=== PATIENT | female | born 1975 | race Caucasian/White ===

== ENCOUNTER 2019-10-28 06:54 | Outpatient (REF) | payer BC, SELFPAY ==
[2019-10-28 13:31] LABS: Alanine Aminotransferase 30 U/L (0-33); Alkaline Phosphatase 84 IU/L (35-105); Anion Gap 18.1 (5-19); Aspartate Amino Transferase 37 U/L (0-32); Blood Urea Nitrogen 17 mg/dL (6-20); Calcium 9.6 mg/dL (8.5-10.5); Carbon Dioxide 25 mmol/L (22-29); Chloride 97 mmol/L (98-107); Chol HDL Ratio 4.31 mg/dL (0.0-4.40); Cholesterol 250 mg/dL (0-200); Globulin 3.5 g/dL (1.3-4.6); Glomerular Filtration Rate 108.6 mL/min (90-130); Glucose 99 mg/dL (65-115); HDL Cholesterol 58 mg/dL (60-100); LDL Cholesterol Calculated 173 mg/dL (50-129); LDL HDL Ratio 2.98 RATIO (0.00-3.22); Potassium 3.1 mmol/L (3.5-5.1); Sodium 137 mmol/L (136-145); Thyroid Stimulating Hormone 1.57 uIU/mL (0.27-4.20); Total Bilirubin 0.3 mg/dL (0.15-1.2); Total Protein 7.5 g/dL (6.6-8.7); Triglycerides 93 mg/dL (0-150)
[2019-10-28 13:37] LABS: Estmated Average Glucose 128; Hemoglobin A1C 6.1 % (4.0-6.0)
[2019-10-28 23:28] LABS: 25 Hydroxy Vitamin D 21 ng/mL (30-100)
[2019-10-29 03:03] LABS: Basophils # 0.1 10^3/uL (0.0-0.1); Basophils % 0.7 %; Eosinophils # 0.4 10^3/uL (0.0-0.8); Eosinophils % 5.3 %; Hematocrit 38.1 % (37.0-47.0); Hemoglobin 11.2 g/dL (11.5-15.3); Lymphocytes # 2.3 10^3/uL (0.8-4.8); Lymphocytes % 31.3 %; Mean Corpuscular HGB Conc 29.4 g/dL (30.0-36.0); Mean Corpuscular Hemoglobin 22.3 pg (28.0-34.0); Mean Corpuscular Volume 75.9 fL (81-99); Mean Platelet Volume 12.9 fL (7.4-10.4); Monocytes # 0.9 10^3/uL (0.2-0.9); Monocytes % 11.7 %; Neutrophils # 3.7 10^3/uL (1.8-7.7); Neutrophils % 50.7 %; Nucleated Red Blood Cells % 0 %; Platelet Count 356 10^3/cmm (130-400); Red Blood Count 5.02 10^6/uL (4.1-5.3); Red Cell Distribution Width 16.9 % (12.1-15.1); White Blood Count 7.3 10^3/uL (4.0-10.0)
== END 2019-10-28 06:55 | disposition home or self-care (01) ==
LOC: LAB 06:54
PROVIDERS: Family Provider Family Medicine; Visit Provider Dermatology
DX: Z01.89 Encounter for other specified special examinations (principal)
CPT/HCPCS: 80053; 80061; 82306; 83036; 84443; 85025

== ENCOUNTER 2020-07-16 16:03 | Outpatient (CLI) | payer BC, SELFPAY ==
--- NOTE | 2020-07-16 16:42 | CTR_ITS ---
PROCEDURE INFORMATION: Exam: CT Angiography Chest With Contrast Exam date and time: 07/16/2020 4:42 PM Age: 44 years old Clinical indication: Cough and shortness of breath; Prior surgery; Surgery type: Breast aug; Additional info: Cough, dyspnea. Please call Dr. La with results [phone] TECHNIQUE: Imaging protocol: Computed tomographic angiography of the chest with intravenous contrast. 3D rendering (Not supervised by radiologist): MIP and/or 3D reconstructed images were created by the technologist. Radiation optimization: All CT scans at this facility use at least one of these dose optimization techniques: automated exposure control; mA and/or kV adjustment per patient size (includes targeted exams where dose is matched to clinical indication); or iterative reconstruction. Contrast material: OMNI 350; Contrast volume: 70 ml; Contrast route: INTRAVENOUS (IV); COMPARISON: No relevant prior studies available. RADIATION DOSE METRICS: Total DLP (mGy-cm): 595.56 FINDINGS: Pulmonary arteries: No visible evidence of pulmonary embolism/pulmonary arterial thrombus. Aorta: The thoracic aorta is nonaneurysmal. No visible intimal flap or dissection. Minimal arterial sclerotic disease. Lungs: Evidence of antecedent granulomatous disease. Calcified granuloma posterior basal segment left lower lobe. Mild air trapping of COPD/chronic bronchitis. No visible consolidated alveolar airspace disease. Pleural space: Unremarkable. No pneumothorax. No pleural effusion. Heart: Mild coronary artery disease. No visible pericardial effusion. Lymph nodes: No visible active mediastinal or hilar lymphadenopathy. Gallbladder and bile ducts: Status post cholecystectomy. Spleen: Splenule. Spleen otherwise appears unremarkable. Bones/joints: Mild degenerative disease of the spine. No visible acute osseous abnormality. Soft tissues: Bilateral breast implants. CT/CT angio chest PE protcl [id number] IMPRESSION: 1. No visible evidence of pulmonary embolism/pulmonary arterial thrombus. 2. Mild air trapping of COPD/chronic bronchitis. 3. Mild coronary artery disease. Radiation Dose CTDIVOL = (mGy): DLP = 595.56 (mGy-cm)
[2020-07-16] MEDS: iohexol 350 mg/mL 100 mL Btl IV (16:57)
== END 2020-07-16 16:04 | disposition home or self-care (01) ==
LOC: RAD 16:09
PROVIDERS: PCP Family Medicine; Visit Provider Family Medicine
DX: R05 Cough (principal); I25.10 Atherosclerotic heart disease of native coronary artery without angina pectoris
CPT/HCPCS: 71275

== ENCOUNTER 2020-07-24 09:51 | Outpatient (CLI) | payer BC, SELFPAY ==
[2020-07-24 10:08] LABS: Basophils % 0.4 %; Eosinophils # 0.2 10^3/uL (0.0-0.8); Eosinophils % 3.4 %; Hematocrit 42.4 % (37.0-47.0); Hemoglobin 13.8 g/dL (11.5-15.3); Lymphocytes # 2.1 10^3/uL (0.8-4.8); Lymphocytes % 30.6 %; Mean Corpuscular HGB Conc 32.5 g/dL (30.0-36.0); Mean Corpuscular Hemoglobin 25.6 pg (28.0-34.0); Mean Corpuscular Volume 78.7 fL (81-99); Mean Platelet Volume 11.5 fL (7.4-10.4); Monocytes # 0.7 10^3/uL (0.2-0.9); Monocytes % 10.8 %; Neutrophils # 3.74 10^3/uL (1.8-7.7); Neutrophils % 54.7 %; Nucleated Red Blood Cells % 0 %; Platelet Count 306 10^3/cmm (130-400); Red Blood Count 5.39 10^6/uL (4.1-5.3); Red Cell Distribution Width 14.3 % (12.1-15.1); White Blood Count 6.8 10^3/uL (4.0-10.0)
== END 2020-07-24 09:52 | disposition home or self-care (01) ==
LOC: LAB 09:53
PROVIDERS: PCP Family Medicine; Visit Provider Internal Medicine Pulmonary Disease
DX: J45.909 Unspecified asthma, uncomplicated (principal); R06.02 Shortness of breath
CPT/HCPCS: 36415; 85025; 87635

== ENCOUNTER 2020-07-27 07:57 | Day surgery (SDC) | payer BC, SELFPAY ==
[2020-07-26 14:41] VITALS: BMI 34.4
[2020-07-27] VITALS (9 sets, daily range): BP systolic 76–143; BP diastolic 61–95; PULSE 70–99; RESP 16–22; TEMP 36.1–36.8; O2SAT 94–97
--- NOTE | 2020-07-27 | SCC_ITS ---
Procedure:Bronchoscopy with BAL and Transbronchial biopsy 18.6 seconds of fluoroscopic guidance, for a cumulative dose of 4.23 mGy, was provided to Dr. Watkins by the radiology department. C-arm images of the chest were saved for the patient's permanent record. ADELED
--- NOTE | 2020-07-27 08:00 | SC_ITS ---
WS: [id number] C-arm fluoroscopy of the left chest for bronchoscopy, 07/27/2020. Clinical Data: bronchscopy with Transbroncial biopsies Comparison: Portable chest, 07/27/2020. Findings: The bronchoscope is in the left mid lung. SC/C-arm FL for Bronchoscopy Impression: Bronchoscopy of left lung.
[2020-07-27] MEDS: sodium chloride 0.9% 1,000 ML 30 ML IV (08:29)
--- NOTE | 2020-07-27 08:32 | P.ANESASSM_ITS ---
Pre-Anesthetic Assessment Pre-Anesthetic Assessment: Height/Weight: Height 1.7 m Weight 99.79 kg Temp Pulse Resp BP Pulse Ox 98.2 F 80 18 121/90 96 07/27/20 08:09 07/27/20 08:09 07/27/20 08:09 07/27/20 08:09 07/27/20 08:09 Preop Diagnosis: Interstitial lung disease Proposed Procedure: Operation Date: 07/27/20 09:25 Proposed Procedures p Bronchoscopy 57188 J45.909 R06.02 ALVEOLAR LAVAGE/TRANSBRONCHIAL BIOPSY(Not Applicable) - Kyle Watkins MD Familial anesthetic complications: PONV Was Beta Angela taken within 24 hours: N/A Last intake: Intake Last Liquid Date 07/26/20 Last Liquid Time 22:00 Last Solid Date 07/26/20 Last Solid Time 20:00 Social: Social History: No alcohol and No tobacco Exam: Pre-Anes Outpt Exam: alert, oriented x 3, clear to auscultation bilaterally and regular rate & rhythm Airway: Cervical ROM: WNL MP: 2 Dentition: Full Pulmonary: Pulmonary: Asthma Comments: post viral syndrome Anesthetic Plan: ASA status: 2 Anesthesia: General Other: TIVA for nausea Risk of > 500 ml blood loss (7ml/kg in children): No Meds/Allergies Current Medications: Current Medications Generic Name Dose Route Start Last Admin Trade Name Freq PRN Reason Stop Dose Admin Sodium Chloride 1,000 mls @ 30 ml s/hr 07/27/20 08:00 07/27/20 08:29 Sodium Chloride 0.9% IV 07/28/20 07:59 30 mls/hr .Q24H ALBERTO Administration PFSH Anesthesia PFSH: Social History Smoking and tobacco status: never smoked Second hand smoke exposure: No Smoking risk assessment/counseling performed?: No Alcohol intake: never Lives independently: Yes Household members: spouse Housing: House Marital status: Current occupational status: employed Current occupation: [employer] History of recent travel: No Current gender identity: Female Data Anesthesia Cardiac Studies: No Data to Display
[2020-07-27] MEDS: scopolamine 1.5 Patch 1 PATCH TRANSDERMA (08:41)
--- NOTE | 2020-07-27 10:00 | XR_ITS ---
WS: [id number] XR chest 1V portable [id number] REASON FOR EXAM: post bronch scopy with Transbroncial biopsies FINDINGS: Post bronchoscopy, evaluate for pneumothorax. Case discussed over the phone with end touching machine operator. Biopsy performed on the left side. There is no left pneumothorax. There are minimal infiltrative changes seen centrally and in the left lower lobe. (Min imal infiltrative change often seen post bronchoscopy.) Right lung is clear. The heart and mediastinum are within normal limits. XR/XR chest 1V portable [id number] IMPRESSION: No significant abnormality post bronchoscopy with left lung transbronchial biop sy.
--- NOTE | 2020-07-27 10:21 | P.HP_ITS ---
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 However patient Saw patient in clinic on 07/23/2020 for shortness of breath for last 4 to 6 weeks associated with pleuritic chest pain, nonproductive cough and chest tightness with orthopnea. 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 Denied history of smoking tobacco or marijuana, exposure to pets, known allergens to environment, secondhand smoke exposure, exposure to birds/regions, childhood asthma. 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 Takes hydrochlorothiazide and propranolol and vitamin supplements Travel to [place] in the summer and stayed there for 4 days in a high-end hotel which she has strict Covid precautions. More than 10 years ago she had a pericardial effusion which resolved with treatment. Reported having saline breast implants in 2008 and were filled with silicone 3 years ago in 2017. Reported no issues/leak with her implants. Family history grandfather at a young age due to heart problems, mother and father and are in their late 70s. Family history of hyperlipidemia. Review of Systems Narrative: Reports: 10 or more systems reviewed and unremarkable except as noted in History and below Const: Reports: fatigue; Denies: fever(s), chills, body aches or daytime sleepiness Eyes: Denies: change in vision ENMT: Denies: throat pain, ear or mastoid pain, nasal discharge or nasal congestion Card: Reports: chest pain, dyspnea on exertion and orthopnea; Denies: palpitations, irregular heart rhythm, swelling of feet/ankles, lightheadedness, syncope, pre-syncope or leg pain with exertion Resp: Reports: dyspnea, non-productive cough, wheezing and pain on inspiration; Denies: productive cough, stridor, change in phlegm color, hemoptysis or chest congestion GI: Denies: abdominal pain, nausea or vomiting : Denies: flank pain or difficulty voiding Musc: Reports: back pain (behind lungs, sore to touch); Denies: joint pain Skin/Breast: Denies: rash, pruritus or erythema Neuro: Denies: headache(s), difficulty walking or dizziness Psych: Denies: anxiety, depression, suicidal ideation or homicidal ideation Endo: Reports: tired all the time Jaspal/Lymph: Denies: easy bruising or easy bleeding All/Imm: Denies: seasonal rhinorrhea Medications/Allergies Home Medications Medication Instructions Recorded Confirmed Last Taken Type albuterol sulfate 90 mcg/actuation 2 puff INHALATION Q6H PRN 07/20/20 07/23/20 Unknown History aerosol inhaler hydrochlorothiazide 25 mg tablet 50 mg PO DAILY tab 07/20/20 07/23/20 Unknown History propranolol 10 mg tablet 10 mg PO BID 07/20/20 07/23/20 Unknown History fluticasone propionate 45 2 puff INHALATION BID #12 gm 07/23/20 07/23/20 Unknown Rx mcg-salmeterol 21 mcg/actuation HFA inhaler Allergies Allergy/AdvReac Type Severity Reaction Status Date / Time Penicillins Allergy Severe Unknown Verified 07/23/20 13:36 PFSH PFSH: Social History Smoking and tobacco status: never smoked Second hand smoke exposure: No Smoking risk assessment/counseling performed?: No Alcohol intake: never Lives independently: Yes Household members: spouse Housing: House Marital status: Current occupational status: employed Current occupation: [employer] History of recent travel: No Current gender identity: Female Dietary Habits: Caffeine: Yes Vital Signs Vitals Signs: Last Vital Signs Temp 98.2 F 07/27/20 08:09 Pulse 80 07/27/20 08:09 Resp 18 07/27/20 08:09 BP 121/90 07/27/20 08:09 Pulse Ox 96 07/27/20 08:09 Weight: Weight last 48 hrs Weight 220 lb Physical Exam Narrative: EXAM NARRATIVE: General: alert, NAD HEENT: conj clear, EOMI, PERRL, mmm, Neck: supple, no meningismus Heme: no cervical LAP Pulmonary: CTAB, no wheezing, rhonchi, crackles Cardiovascular: rrr, nl s1s2, no mrg Abdomen: soft, nt, nd, no r/g, bs+ Extremities: pulses +, no edema, no c/c : no CVA tenderness Skin: intact, no rash MSK: no back or neck pain Neurologic: grossly intact A&P Assessment and plan (1) Asthma: Status: Acute Qualifiers: Asthma severity: unspecified severity Asthma persistence: unspecified Asthma complication type: uncomplicated Qualified Code(s): J45.909 - Unspecified asthma, uncomplicated (2) Interstitial lung disease: Status: Acute (3) Exertional shortness of breath: Status: Acute #Shortness of breath/exertional chest pain with chest tightness- asthma/interstitial lung disease - 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 Cannot rule out if patient has Covid -Symptoms improved gradually all the family members but still persisting fatigue -CT chest did not show any pulmonary embolism but showed mild air trapping in the middle and lower lobes -Blood work from PCP office showed 5.5% absolute eosinophil count greater than 250 -Denied any exposure to smoke, smoking tobacco or marijuana, known allergens to environmental, animals, molds, exposure to birds, -Medications hydrochlorothiazide -some case reports reported peripheral eosinophilia -Recent travel to [place] for 4 days but since told her she is stating high-end hotel with good Covid precautions -cannot rule out parasitic infection -Differentials include allergic asthma/acute eosinophilic pneumonia/HP but patient refused any response to steroids given by PCP -Ordered CBC, IgE, allergy panel, requested PFTs and methacholine challenge test -Ordered stress echo and referral to cardiology in view of premature ? Coronary artery disease and family history of hyperlipidemia -Already on albuterol as needed and says it is not helping, started on Advair 45-21 2 puffs twice daily on 07/23/2020 but patient says that Advair made his shortness of breath even worse. -Scheduled for bronchoscopy to obtain BAL for cell differential and transbronchial biopsy to rule out a AEP/HP/? Silicon ILD due to breast implants silent ruptures Medical condition, labs, investigations, medications, counseling regarding medication compliance, side effects, importance of follow-up appointments, and plan of care-everything explained in detail to the patient. Patient verbalized understanding and agreed with the plan of care. 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
[2020-07-27] MEDS: EPINEPHrine 1 mg/mL INJ XX (11:10)
[2020-07-27] MEDS: lidocaine 1% INJ 20 mL XX (11:11)
--- NOTE | 2020-07-27 12:09 | PM.OP ---
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 The risk of having active MTB infection is very low in my clinical judgement. ASA: 2 Consent: Consents were obtained from patient/MPOA and placed in the chart Procedure Details: Time out was performed by the procedure team and nursing staff. Vent support maintained on Fio2 100. The bronchoscope was introduced through the LMA. True vocal cords visualized, mobile and look normal. 1% lidocaine 2 mL instilled and then trachea visualized with normal mucosa. Main aicha looked sharp. 1% lidocaine 2 mL instilled in both mainstem bronchi. A bronchoscopic airway exam was performed to evaluate the visible tracheobronchial tree to the segmental level up to 3RD generation. The right bronchial tree was assessed to include the right mainstem bronchus, RBI, and RUL/RML/RLL bronchi to the segmental level. Mucosa looked normal throughout with no endobronchial lesions or abnormalities. Then the left bronchial tree was assessed to include the left mainstem bronchus, NIKOLAY, Lingula, and LLL bronchi to the segmental level. Mucosa looked normal throughout with no endobronchial lesions or abnormalities. . BAL and 4 transbronchial biopsies were taken from the left lower lobe. Patient has significant amount of bleeding, about 20 mL from left lower lobe, hemostasis achieved with epinephrine and cold saline. Confirmed hemostasis with bronchoscope in both lungs. Limited clot-like materials noticed from lower lobe segments and biopsies were taken from to sent to histopathology. After making sure there is no active bleeding the bronchoscope was then removed and the procedure terminated. Estimated Blood Loss: 20 mL Specimens: BAL from right upper lobe sent for microbiology culture, mycobacterial stain and culture, fungal cultures for Aspergillus and galactomannan, cell count and differential, flow cytometry, transbronchial biopsies sent to pathology. Complications: Patient had about 20 mL bleeding from left lower lobe which was controlled with epinephrine/cold saline installation patient tolerated the procedure well. Chest x-ray pending to rule out post transbronchial biopsy pneumothorax. Disposition: Home Kyle Watkins MD Pulmonary critical Care Medicine [facility] Pre-op Diagnosis: Interstitial lung disease Associated Problem List Diagnoses (1) Exertional shortness of breath: (2) Interstitial lung disease: (3) Asthma: Qualifiers: Asthma severity: unspecified severity Asthma persistence: unspecified Asthma complication type: uncomplicated Qualified Code(s): J45.909 - Unspecified asthma, uncomplicated
[2020-07-27 13:19] LABS: Apprearance, Bronch Wash Clear (CLEAR); Color, Bronc Wash Colorless
[2020-07-27 13:22] LABS: PATH Referral Yes
--- NOTE | 2020-07-27 13:40 | ANE.PACU2 ---
Inpatient post-anesthesia follow up: Airway intact: Yes Vital signs: Temperature 98.1 F Pulse Rate 70 Respiratory Rate 18 Blood Pressure 96/67 Pulse Oximetry 94 Oxygen Delivery Me thod Room Air Oxygen Flow Rate 8 Fraction of Inspir ed Oxygen Hydration adequate: Yes Nausea and vomiting: No Pain level: 2 Mental status: Baseline
[2020-07-27 17:15] LABS: Total Cells Counted Bronch 200
[2020-08-04 14:03] LABS: Aspergillus AG,EIA DETECTED; Aspergillus AG,EIA, Index 1.02
[2020-09-20 12:15] LABS: Miscellaneous Test See Scanned Lab Rpt
== END 2020-07-27 13:41 | disposition home or self-care (01) ==
PROVIDERS: PCP Family Medicine; Visit Provider Internal Medicine Pulmonary Disease
PROC: 0BJ08ZZ Inspection of Tracheobronchial Tree, Via Natural or Artificial Opening Endoscopic (ICD-10-PCS; CPT 31622; principal; 2020-07-27 09:25)
DX: J84.9 Interstitial pulmonary disease, unspecified (principal); J45.909 Unspecified asthma, uncomplicated
CPT/HCPCS: 12345; 31624; 31625; 71045; 76000; 80500; 87015; 87070; 87102; 87116; 87205; 87206; 87305; 87801; 88112; 88305; 88307; 89050; 94640; J0171; J1100; J2405; J2704; J3010; J7030; J7611

== ENCOUNTER 2020-07-30 14:26 | Outpatient (CLI) | payer BC, SELFPAY ==
--- NOTE | 2020-07-30 09:36 | PFTS_ITS ---
Date of Study:07/30/20 Date of Dictation: 08/08/2020 MECHANICS: Forced vital capacity (FVC) is reduced 67% Forced expiratory volume in one second (FEV1) mildly reduced 77% FEV1/FVC is normal 92 No significant response to bronchodilators FLOW VOLUME LOOP: Normal . LUNG VOLUMES: Total lung capacity (TLC) is low normal. Residual volume (RV) is normal. DIFFUSING CAPACITY FOR CARBON MONOXIDE: Normal . INTERPRETATION: The PFTs consistent with low normal restriction with normal gas transfer suggestive of extrathoracic restrictive lung disease. Please correlate clinically. MTDD
--- NOTE | 2020-07-30 09:39 | MECH_ITS ---
Date of Study:07/30/20 Date of Dictation: 08/08/2020 MECHANICS: Pre diluent -FEV1 2.45 L Diluent FEV1 2.12 L [id number] diluent FEV1 1.94 L Post diluent FEV1 2.38 L . INTERPRETATION: Drop in FEV1 20% at PC 20 - positive methacholine challenge test and suggest severe airway hyperresponsiveness. Please correlate clinically. MTDD
--- NOTE | 2020-07-30 15:56 | PFTS_ITS ---
Date of Study:07/30/20 Date of Dictation: MECHANICS: Forced vital capacity (FVC) is . Forced expiratory volume in one second (FEV1) is . FEV1/FVC is . FLOW VOLUME LOOP: . LUNG VOLUMES: Total lung capacity (TLC) is . Residual volume (RV) is . DIFFUSING CAPACITY FOR CARBON MONOXIDE: . INTERPRETATION: The pulmonary function tests are . mechanics and lung volumes. Gas exchange (DLCO) is . MTDD
== END 2020-07-30 14:27 | disposition home or self-care (01) ==
LOC: RT 14:27
PROVIDERS: PCP Family Medicine; Visit Provider Internal Medicine Pulmonary Disease
DX: J45.909 Unspecified asthma, uncomplicated (principal)
CPT/HCPCS: 94060; 94070; 94726; 94729; J7611; J7626

== ENCOUNTER 2020-07-30 16:16 | Emergency (ER) | payer BC, SELFPAY ==
[2020-07-30] VITALS (13 sets, daily range): BP systolic 118–156; BP diastolic 79–95; PULSE 77–113; RESP 16–22; TEMP 36.4; O2SAT 93–98; BMI 33.6
[2020-07-30] MEDS: ipratropium-albuterol 3 mL Neb 6 ML INHALATION (16:48)
--- NOTE | 2020-07-30 16:54 | XR_ITS ---
WS: [id number] XR chest 1V portable [id number] REASON FOR EXAM: dyspnea/cough FINDINGS: Infiltrative change previously described in the left lower lobe, post bronchoscopy, has partially res olved. However there is a moderate amount of persistent abnormality. Right lung remains clear. Discussion: CT scan of the chest from 07/16/2020 demonstrated groundglass opacity in the left lower lobe and to a lesser extent in the right lower lobe. There are also some areas of hyper lucency in the left lower lung. Previous CT scan of 10/13/2005 also demonstrated the groundglass densities in both lower lobes. These lower lobe findings are difficult to identify on plain x-ray. They are nonspecific and can be s een with overriding of small airway disease and interstitial lung disease. Often associated with smok ing. XR/XR chest 1V portable [id number] IMPRESSION: Persistent left lower lobe infiltrative changes with partial resolution as darien yen
--- NOTE | 2020-07-30 16:57 | ED_ITS ---
Documented by User: Raleigh Cortez DO 07/31/20 17:55 HPI - SOB/Dyspnea General: Chief Complaint: Shortness of Breath/Dyspnea Stated Complaint: Trouble Breathing/Constant Chest Pain Time Seen by Provider: 07/30/20 16:48 History of Present Illness: HPI Narrative: 44 yo female presents to the emergency room from the PFT lab. She recently has been being worked up for difficulty breathing and wheezing. She had a bronchoscopy last week when she had this done she had quite a bit of bleeding postoperatively and has been coughing up moderate amounts of blood since but it has been decreasing in volume. Today she was in the PFT lab and had a methacholine challenge test and had a severe reaction she had several nebulizers and a Pulmicort did not seem to be getting better and she was referred here by Dr. Anthony Donovan. Dr. Anthony Donovan was in the emergency room and discussed with me. When I went in to see the patient she is awake and alert she is using a nebulizer treatment that we had ordered. She reports mild improvement since this episode began. She denies any recent fever sweats or chills but endorses report Dr. Anthony Donovan gave of having frequent shortness of breath and wheezing. MD elicited complaint: shortness of breath, cough and asthma attack Pertinent past history: asthma Onset (ago): minute(s) Context: recent illness and other (Methacholine challenge test) Timing: constant Severity: severe Exacerbating factors: coughing Relieving factors: bronchodilators Known history of: asthma Associated symptoms: Deny abdominal pain, chest congestion, chest pain, cough, diaphoresis, dizziness, extremity pain, fever(s), hemoptysis, lightheadedness, myalgias, nausea, orthopnea, palpitations, paresthesias, polydipsia, polyuria, rash, sense of impending doom, syncope or vomiting Treatment prior to arrival: oxygen and bronchodilator Review of Systems Const: Denies: fever(s) or diaphoresis ENMT: Denies: throat pain, ear or mastoid pain, nasal discharge or nasal congestion Card: Denies: chest pain, palpitations, lightheadedness, syncope or orthopnea Resp: Denies: hemoptysis or chest congestion GI: Denies: abdominal pain, nausea or vomiting : Denies: flank pain, difficulty voiding, dysuria, urinary frequency or urinary urgency Musc: Denies: extremity pain Skin/Breast: Denies: rash or pruritus Neuro: Denies: dizziness Endo: Denies: polyuria or polydipsia PFSH ED PFSH: Social History Smoking and tobacco status: never smoked Second hand smoke exposure: No Smoking risk assessment/counseling performed?: No Alcohol intake: never Lives independently: Yes Household members: spouse Housing: House Marital status: Current occupational status: employed Current occupation: [employer] Insurance History of recent travel: No Current gender identity: Female Physical Exam Const: COMMON NORMALS: no acute distress GENERAL APPEARANCE: cooperative and comfortable ORIENTATION/CONSCIOUSNESS: Yes awake, Yes oriented to person, Yes oriented to place and Yes oriented to time HENMT: COMMON NORMALS: normocephalic, atraumatic and hearing grossly normal bilaterally HEAD & SCALP: normocephalic and atraumatic Neck/C-Spine: COMMON NORMALS: no JVD Lymph: LYMPHATIC: no lymphadenopathy noted and no lymphedema noted Resp: AUSCULTATION: rhonchi and wheezes Cardio: COMMON NORMALS: no JVD, regular rate, regular rhythm and No murmurs present (Cardio) RATE: regular rate RHYTHM: regular rhythm GI: COMMON NORMALS: Soft to palpation and No hepatosplenomegaly present AUSCULTATION: Yes normoactive bowel sounds PALPATION: Yes Soft to palpation, No Tenderness to palpation present (GI), No Guarding due to palpation present (GI) and Yes No hepatosplenomegaly present Extremity: COMMON NORMALS: normal to inspection, capillary refill normal, no clubbing, cyanosis or edema, no calf tenderness and no pedal edema Neuro: SENSORIUM/ORIENTATION: Yes oriented to person, Yes oriented to place and Yes oriented to time Skin: COMMON NORMALS: no rashes or lesions noted GENERAL SKIN EXAM: no rashes or lesions noted Course Vital Signs: Vital signs: Vital Signs Temperature 97.5 F L 07/30/20 16:29 Pulse Rate 78 07/31/20 00:17 Respiratory Rate 16 07/31/20 00:17 Blood Pressure 158/75 07/31/20 00:17 Pulse Oximetry 93 07/31/20 00:17 MDM - SOB/Dyspnea MDM Narrative: Medical decision making narrative: Care turned over to Dr. Shetty at change of shift Lab Data: Labs: Lab Results 07/30/20 07/30/20 07/30/20 Range/Units 20:41 20:41 20:41 WBC 11.5 H (4.0-10.0) 10^3/ uL RBC 5.88 H (4.1-5.3) 10^6/u L Hgb 14.9 (11.5-15.3) g/dL Hct 46.0 (37.0-47.0) % MCV 78.2 L (81-99) fL MCH 25.3 L (28.0-34.0) pg MCHC 32.4 (30.0-36.0) g/dL RDW 14.3 (12.1-15.1) % Plt Count 338 (130-400) 10^3/c mm MPV 11.3 H (7.4-10.4) fL Neut % (Auto) 86.2 % Lymph % (Auto) 11.0 % Vilas % (Auto) 1.8 % Eos % (Auto) 0.3 % Baso % (Auto) 0.3 % Neut # (Auto) 9.86 H (1.8-7.7) 10^3/u L Lymph # (Auto) 1.3 (0.8-4.8) 10^3/u L Vil[place] # (Auto) 0.2 (0.2-0.9) 10^3/u L Eos # (Auto) 0.0 (0.0-0.8) 10^3/u L Baso # (Auto) 0.0 (0.0-0.1) 10^3/u L Nucleated RBC % (a uto) 0 % Nucleated RBCs # 0.0 /100WBC PT 12.70 (12.1-14.9) SECO NDS INR 0.93 (0.8-1.2) APTT 26.9 (23.9-36.7) SECO NDS D-Dimer 0.29 (0-0.59) ug/mIFE U Sodium 135 L (136-145) mmol/L Potassium 3.6 (3.5-5.1) mmol/L Chloride 97 L (98-107) mmol/L Carbon Dioxide 26 (22-29) mmol/L Anion Gap 15.6 (5-19) BUN 13 (6-20) mg/dL Creatinine 0.5 (0.5-0.9) mg/dL GFR Calculation 133.4 H (90-130) mL/min Glucose 132 H (65-115) mg/dL Calculated Osmolal ity 282 L (285-295) mOsm/k g Calcium 10.3 (8.5-10.5) mg/dL Magnesium 1.8 (1.7-2.3) mg/dL Total Bilirubin 0.3 (0.15-1.2) mg/dL AST 24 (0-32) U/L ALT 28 (0-33) U/L Alkaline Phosphata se 109 H (35-105) IU/L Troponin T Baselin e (0-10) ng/L Troponin T [address] [place] (0-10) ng/L Delta Troponin T (0-10) ABS# NT-Pro-B Natriuret Pep 11 (0-125) pg/mL Total Protein 8.1 (6.6-8.7) g/dL Albumin 4.5 (3.5-5.2) g/dL Globulin 3.6 (1.3-4.6) g/dL HCG, Qual (Negative) 07/30/20 07/30/20 07/30/20 Range/Units 20:41 20:41 22:47 WBC (4.0-10.0) 10^3/ uL RBC (4.1-5.3) 10^6/u L Hgb (11.5-15.3) g/dL Hct (37.0-47.0) % MCV (81-99) fL MCH (28.0-34.0) pg MCHC (30.0-36.0) g/dL RDW (12.1-15.1) % Plt Count (130-400) 10^3/c mm MPV (7.4-10.4) fL Neut % (Auto) % Lymph % (Auto) % Vil[place] % (Auto) % Eos % (Auto) % Baso % (Auto) % Neut # (Auto) (1.8-7.7) 10^3/u L Lymph # (Auto) (0.8-4.8) 10^3/u L Vilas # (Auto) (0.2-0.9) 10^3/u L Eos # (Auto) (0.0-0.8) 10^3/u L Baso # (Auto) (0.0-0.1) 10^3/u L Nucleated RBC % (a uto) % Nucleated RBCs # /100WBC PT (12.1-14.9) SECO NDS INR (0.8-1.2) APTT (23.9-36.7) SECO NDS D-Dimer (0-0.59) ug/mIFE U Sodium (136-145) mmol/L Potassium (3.5-5.1) mmol/L Chloride (98-107) mmol/L Carbon Dioxide (22-29) mmol/L Anion Gap (5-19) BUN (6-20) mg/dL Creatinine (0.5-0.9) mg/dL GFR Calculation (90-130) mL/min Glucose (65-115) mg/dL Calculated Osmolal ity (285-295) mOsm/k g Calcium (8.5-10.5) mg/dL Magnesium (1.7-2.3) mg/dL Total Bilirubin (0.15-1.2) mg/dL AST (0-32) U/L ALT (0-33) U/L Alkaline Phosphata se (35-105) IU/L Troponin T Baselin e 6 (0-10) ng/L Troponin T [address] [place] 6.00 (0-10) ng/L Delta Troponin T 0 (0-10) ABS# NT-Pro-B Natriuret Pep (0-125) pg/mL Total Protein (6.6-8.7) g/dL Albumin (3.5-5.2) g/dL Globulin (1.3-4.6) g/dL HCG, Qual Negative (Negative) Discharge Plan Discharge Patient Disposition: Home Clinical Impression: Community acquired pneumonia Qualifiers: Laterality: left Lung location: upper lobe of lung Qualified Code(s): J18.9 - Pneumonia, unspecified organism Condition: Stable Prescriptions: New levofloxacin 750 mg tablet 750 mg PO DAILY 7 Days RF: 0 prednisone 10 mg tablets,dose pack See Rx Instructions .ROUTE .COMPLEX Qty: 21 RF: 0 No Action propranolol 10 mg tablet 10 mg PO BID RF: 0 hydrochlorothiazide 25 mg tablet 50 mg PO DAILY RF: 0 ipratropium-albuterol 0.5 mg-3 mg(2.5 mg base)/3 mL solution for nebulization 3 ml inhalation Q4H PRN (Reason: wheezing) Qty: 180 RF: 3 Ad&K 1 tab PO DAILY RF: 0 Dsm 1 tab PO DAILY RF: 0 Flovent HFA 110 mcg/actuation HFA aerosol inhaler 1 inh INHALATION Q12H Qty: 12 RF: 3 Discharge Orders: Discharge Order (Routine); Ordered 07/30/20 Ordered By: Janey Cardoso Referrals: Pritesh La MD [Primary Care Provider] - 1-3 days Discharge Diet: Advance as tolerated Discharge Activity: Increase activity as tolerated Patient Instructions: Pneumonia (ED) Activity Restrictions/Additional Instructions: Please return to the ER immediately for any of the signs or symptoms listed on your discharge instruction sheets, worsening/changing of your symptoms, you are not getting better as quickly as expected, or for ANY other cause or concerns. Take your medications as I have prescribed them. Use your nebulizer with the Du oNeb I have prescribed as needed for shortness of breath. If you become any more short of breath at all please return to the ER immediately for recheck. Make an appointment to follow-up with Dr. La this week for recheck and follow-up with Dr. Watkins as scheduled. Sign Out Sign Out Data: Patient Sign Out occurred on 07/30/20 at 18:46. Patient's care was discussed, and care was transferred from to Janey Cardoso. Coding Level of Care Code ED Automotive Engineer for Chg Fwd Documented by User: Janey Cardoso 07/31/20 04:46 HPI - SOB/Dyspnea General: Chief Complaint: Shortness of Breath/Dyspnea Stated Complaint: Trouble Breathing/Constant Chest Pain Time Seen by Provider: 07/30/20 16:48 PFSH ED PFSH: Social History Smoking and tobacco status: never smoked Second hand smoke exposure: No Smoking risk assessment/counseling performed?: No Alcohol intake: never Lives independently: Yes Household members: spouse Housing: House Marital status: Current occupational status: employed Current occupation: [employer] Insurance History of recent travel: No Current gender identity: Female Course Vital Signs: Vital signs: Vital Signs Temperature 97.5 F L 07/30/20 16:29 Pulse Rate 78 07/31/20 00:17 Respiratory Rate 16 07/31/20 00:17 Blood Pressure 158/75 07/31/20 00:17 Pulse Oximetry 93 07/31/20 00:17 MDM - SOB/Dyspnea MDM Narrative: Medical decision making narrative: Martita is a nice 44-year-old female who comes in with ongoing respiratory problems. The patient's case was reviewed in full with Dr. Watkins patient's midwife and birth center owner who brought her to the ER today. He thinks it odd that the patient has a left upper lobe pneumonia on CT but had left lower lobe hemorrhage on her most recent bronchoscopy. He would like this treated with prednisone, Levaquin and inhalers at home. The patient will be discharged with a nebulizer. Dr. Hall already has established follow-up with her the end of this week or next week and he wants to keep that appointment. This time the patient has had 2 normal EKGs and 2 - sets of cardiac enzymes. Her lung sounds are clear and her vital signs are normal. She is not in distress. On exam she has not had any wheezing. She would like to go home so I will discharge her per her request but she agrees to return should her symptoms change or worsen. This time I see no evidence of acute respiratory failure, pulmonary embolism, acute coronary syndrome, aortic dissection but she does have pneumonia. We will treat this clinically and I believe she is suitable for outpatient treatment. Lab Data: Attestation: I reviewed the patient's lab results. Labs: Lab Results 07/30/20 07/30/20 07/30/20 Range/Units 20:41 20:41 20:41 WBC 11.5 H (4.0-10.0) 10^3/ uL RBC 5.88 H (4.1-5.3) 10^6/u L Hgb 14.9 (11.5-15.3) g/dL Hct 46.0 (37.0-47.0) % MCV 78.2 L (81-99) fL MCH 25.3 L (28.0-34.0) pg MCHC 32.4 (30.0-36.0) g/dL RDW 14.3 (12.1-15.1) % Plt Count 338 (130-400) 10^3/c mm MPV 11.3 H (7.4-10.4) fL Neut % (Auto) 86.2 % Lymph % (Auto) 11.0 % Vilas % (Auto) 1.8 % Eos % (Auto) 0.3 % Baso % (Auto) 0.3 % Neut # (Auto) 9.86 H (1.8-7.7) 10^3/u L Lymph # (Auto) 1.3 (0.8-4.8) 10^3/u L Vil[place] # (Auto) 0.2 (0.2-0.9) 10^3/u L Eos # (Auto) 0.0 (0.0-0.8) 10^3/u L Baso # (Auto) 0.0 (0.0-0.1) 10^3/u L Nucleated RBC % (a uto) 0 % Nucleated RBCs # 0.0 /100WBC PT 12.70 (12.1-14.9) SECO NDS INR 0.93 (0.8-1.2) APTT 26.9 (23.9-36.7) SECO NDS D-Dimer 0.29 (0-0.59) ug/mIFE U Sodium 135 L (136-145) mmol/L Potassium 3.6 (3.5-5.1) mmol/L Chloride 97 L (98-107) mmol/L Carbon Dioxide 26 (22-29) mmol/L Anion Gap 15.6 (5-19) BUN 13 (6-20) mg/dL Creatinine 0.5 (0.5-0.9) mg/dL GFR Calculation 133.4 H (90-130) mL/min Glucose 132 H (65-115) mg/dL Calculated Osmolal ity 282 L (285-295) mOsm/k g Calcium 10.3 (8.5-10.5) mg/dL Magnesium 1.8 (1.7-2.3) mg/dL Total Bilirubin 0.3 (0.15-1.2) mg/dL AST 24 (0-32) U/L ALT 28 (0-33) U/L Alkaline Phosphata se 109 H (35-105) IU/L Troponin T Baselin e (0-10) ng/L Troponin T [address] [place] (0-10) ng/L Delta Troponin T (0-10) ABS# NT-Pro-B Natriuret Pep 11 (0-125) pg/mL Total Protein 8.1 (6.6-8.7) g/dL Albumin 4.5 (3.5-5.2) g/dL Globulin 3.6 (1.3-4.6) g/dL HCG, Qual (Negative) 07/30/20 07/30/20 07/30/20 Range/Units 20:41 20:41 22:47 WBC (4.0-10.0) 10^3/ uL RBC (4.1-5.3) 10^6/u L Hgb (11.5-15.3) g/dL Hct (37.0-47.0) % MCV (81-99) fL MCH (28.0-34.0) pg MCHC (30.0-36.0) g/dL RDW (12.1-15.1) % Plt Count (130-400) 10^3/c mm MPV (7.4-10.4) fL Neut % (Auto) % Lymph % (Auto) % Vil[place] % (Auto) % Eos % (Auto) % Baso % (Auto) % Neut # (Auto) (1.8-7.7) 10^3/u L Lymph # (Auto) (0.8-4.8) 10^3/u L [place] # (Auto) (0.2-0.9) 10^3/u L Eos # (Auto) (0.0-0.8) 10^3/u L Baso # (Auto) (0.0-0.1) 10^3/u L Nucleated RBC % (a uto) % Nucleated RBCs # /100WBC PT (12.1-14.9) SECO NDS INR (0.8-1.2) APTT (23.9-36.7) SECO NDS D-Dimer (0-0.59) ug/mIFE U Sodium (136-145) mmol/L Potassium (3.5-5.1) mmol/L Chloride (98-107) mmol/L Carbon Dioxide (22-29) mmol/L Anion Gap (5-19) BUN (6-20) mg/dL Creatinine (0.5-0.9) mg/dL GFR Calculation (90-130) mL/min Glucose (65-115) mg/dL Calculated Osmolal ity (285-295) mOsm/k g Calcium (8.5-10.5) mg/dL Magnesium (1.7-2.3) mg/dL Total Bilirubin (0.15-1.2) mg/dL AST (0-32) U/L ALT (0-33) U/L Alkaline Phosphata se (35-105) IU/L Troponin T Baselin e 6 (0-10) ng/L Troponin T [address] [place] 6.00 (0-10) ng/L Delta Troponin T 0 (0-10) ABS# NT-Pro-B Natriuret Pep (0-125) pg/mL Total Protein (6.6-8.7) g/dL Albumin (3.5-5.2) g/dL Globulin (1.3-4.6) g/dL HCG, Qual Negative (Negative) EKG Data^: EKG 1: Attestation: I personally reviewed and interpreted this EKG as follows: EKG Interpretation Date: 07/30/20 EKG interpretation time: 16:28 Interpretation: Normal sinus rhythm at 81 beats a minute, left axis deviation, no acute ST-T wave changes. EKG 2: Attestation: I personally reviewed and interpreted this EKG as follows: EKG Interpretation Date: 07/30/20 EKG interpretation time: 22:29 Interpretation: Sinus tachycardia at 111 beats a minute, no blocks, normal intervals, no acute ST or T wave changes. Discharge Plan Discharge Patient Disposition: Home Clinical Impression: Community acquired pneumonia Qualifiers: Laterality: left Lung location: upper lobe of lung Qualified Code(s): J18.9 - Pneumonia, unspecified organism Condition: Stable Prescriptions: New levofloxacin 750 mg tablet 750 mg PO DAILY 7 Days RF: 0 prednisone 10 mg tablets,dose pack See Rx Instructions .ROUTE .COMPLEX Qty: 21 RF: 0 No Action propranolol 10 mg tablet 10 mg PO BID RF: 0 hydrochlorothiazide 25 mg tablet 50 mg PO DAILY RF: 0 ipratropium-albuterol 0.5 mg-3 mg(2.5 mg base)/3 mL solution for nebulization 3 ml inhalation Q4H PRN (Reason: wheezing) Qty: 180 RF: 3 Ad&K 1 tab PO DAILY RF: 0 Dsm 1 tab PO DAILY RF: 0 Flovent HFA 110 mcg/actuation HFA aerosol inhaler 1 inh INHALATION Q12H Qty: 12 RF: 3 Discharge Orders: Discharge Order (Routine); Ordered 07/30/20 Ordered By: Janey Cardoso Referrals: Pritesh La MD [Primary Care Provider] - 1-3 days Discharge Diet: Advance as tolerated Discharge Activity: Increase activity as tolerated Patient Instructions: Pneumonia (ED) Activity Restrictions/Additional Instructions: Please return to the ER immediately for any of the signs or symptoms listed on your discharge instruction sheets, worsening/changing of your symptoms, you are not getting better as quickly as expected, or for ANY other cause or concerns. Take your medications as I have prescribed them. Use your nebulizer with the DuoNeb I have prescribed as needed for shortness of breath. If you become any more short of breath at all please return to the ER immediately for recheck. Make an appointment to follow-up with Dr. La this week for recheck and follow-up with Dr. Watkins as scheduled. Sign Out Sign Out Data: Patient Sign Out occurred on 07/30/20 at 18:46. Patient's care was discussed, and care was transferred from to Janey Cardoso. Coding Level of Care Code ED Automotive Engineer for Christiano Angulo
--- NOTE | 2020-07-30 17:58 | ECG_ITS ---
[facility] Test Date: 2020-07-30 Pat Name: Martita Dixon Department: Room: Gender: Female Pododermatologist: : 1975 Requested By: Raleigh Agudelo Order Number: [id number] Rachel MD: Tarsha Fraser M.D. Measurements Intervals [place] Rate: 81 P: 32 MS: 160 QRS: -34 QRSD: 82 T: 11 QT: 349 QTc: 407 Interpretive Statements SINUS RHYTHM WITH SINUS ARRHYTHMIA MARKED LEFT AXIS DEVIATION [QRS AXIS < -30] POSSIBLE ANTERIOR MYOCARDIAL INFARCTION [30 ms Q WAVE IN V3/V4, OR R < 0.2 mV IN V4], PROBABLY OLD No previous ECG available for comparison Electronically Signed On 07-30-2020 18:40:55 BARREL PAINTER by Tarsha Fraser M.D. [email or web address].Bumble Beez/store/NU/[id number]/[id number] janiya
--- NOTE | 2020-07-30 18:59 | PC.NURSE ---
report received from DIOGO Ellison and care transferred to DIOGO Bush
[2020-07-30] MEDS: ipratropium-albuterol 3 mL Neb 9 ML INHALATION (19:30)
--- NOTE | 2020-07-30 19:38 | ECG_ITS ---
[facility] Test Date: 2020-07-30 Pat Name: Martita Dixon Department: Room: Gender: Female Top Lift Trimmer: : 1975 Requested By: Janey Pereira Order Number: [id number] Ramos MD: Dilma Allen M.D. Measurements Intervals [place] Rate: 88 P: 26 [place]: 144 QRS: -25 QRSD: 97 T: 4 QT: 357 QTc: 433 Interpretive Statements SINUS RHYTHM BORDERLINE LEFT AXIS DEVIATION [QRS AXIS < -20] Compared to ECG 07/30/2020 16:28:01 Sinus arrhythmia no longer present Myocardial infarct finding no longer present Electronically Signed On 07-31-2020 19:13:39 ELECTRICAL RESEARCH ENGINEER by Dilma Allen M.D. [email or web address] Labsun[facility].[employer]/store/NU/[id number] f
--- NOTE | 2020-07-30 20:41 | CTR_ITS ---
PROCEDURE INFORMATION: Exam: CT Angiography Chest With Contrast Exam date and time: 07/30/2020 8:42 PM Age: 44 years old Clinical indication: Cough and shortness of breath; Prior surgery; Surgery type: Breast aug; Additional info: Dyspnea TECHNIQUE: Imaging protocol: Computed tomographic angiography of the chest with intravenous contrast. 3D rendering (Not supervised by radiologist): MIP and/or 3D reconstructed images were created by the technologist. Radiation optimization: All CT scans at this facility use at least one of these dose optimization techniques: automated exposure control; mA and/or kV adjustment per patient size (includes targeted exams where dose is matched to clinical indication); or iterative reconstruction. Contrast material: OMNI 350; Contrast volume: 65 ml; Contrast route: INTRAVENOUS (IV); COMPARISON: CT angio chest PE protcl [id number] 07/16/2020 4:51 PM RADIATION DOSE METRICS: Total DLP (mGy-cm): 613.91 FINDINGS: Pulmonary arteries: Normal. No pulmonary emboli. Aorta: Unremarkable. No aortic aneurysm. No aortic dissection. Lungs: Left upper lobe pneumonia. Pleural space: Unremarkable. No pneumothorax. No pleural effusion. Heart: Coronary artery atherosclerotic calcifications. Lymph nodes: Unremarkable. No enlarged lymph nodes. Gallbladder and bile ducts: Cholecystectomy. Bones/joints: Unremarkable. No acute fracture. Soft tissues: Unremarkable. CT/CT angio chest PE protcl [id number] IMPRESSION: 1. Negative for pulmonary embolus 2. Left upper lobe pneumonia. 3. Cholecystectomy. 4. Coronary artery atherosclerotic calcifications. Radiation Dose CTDIVOL = (mGy): DLP = 613.91 (mGy-cm)
[2020-07-30 20:51] LABS: Basophils % 0.3 %; Eosinophils % 0.3 %; Hemoglobin 14.9 g/dL (11.5-15.3); Lymphocytes # 1.3 10^3/uL (0.8-4.8); Mean Corpuscular HGB Conc 32.4 g/dL (30.0-36.0); Mean Corpuscular Hemoglobin 25.3 pg (28.0-34.0); Mean Corpuscular Volume 78.2 fL (81-99); Mean Platelet Volume 11.3 fL (7.4-10.4); Monocytes # 0.2 10^3/uL (0.2-0.9); Monocytes % 1.8 %; Neutrophils # 9.86 10^3/uL (1.8-7.7); Neutrophils % 86.2 %; Nucleated Red Blood Cells % 0 %; Platelet Count 338 10^3/cmm (130-400); Red Blood Count 5.88 10^6/uL (4.1-5.3); Red Cell Distribution Width 14.3 % (12.1-15.1); White Blood Count 11.5 10^3/uL (4.0-10.0)
--- NOTE | 2020-07-30 20:52 | PC.NURSE ---
patient to CT
[2020-07-30] MEDS: iohexol 350 mg/mL 100 mL Btl IV (21:04)
[2020-07-30 21:06] LABS: INR 0.93 (0.8-1.2)
[2020-07-30 21:07] LABS: Partial Thromboplastin Time 26.9 SECONDS (23.9-36.7)
[2020-07-30 21:10] LABS: D Dimer 0.29 ug/mIFEU (0-0.59)
[2020-07-30 21:12] LABS: Troponin(5th) Baseline 6 ng/L (0-10)
[2020-07-30 21:21] LABS: Alanine Aminotransferase 28 U/L (0-33); Albumin Level 4.5 g/dL (3.5-5.2); Alkaline Phosphatase 109 IU/L (35-105); Anion Gap 15.6 (5-19); Aspartate Amino Transferase 24 U/L (0-32); Blood Urea Nitrogen 13 mg/dL (6-20); Calcium 10.3 mg/dL (8.5-10.5); Carbon Dioxide 26 mmol/L (22-29); Chloride 97 mmol/L (98-107); Globulin 3.6 g/dL (1.3-4.6); Glomerular Filtration Rate 133.4 mL/min (90-130); Glucose 132 mg/dL (65-115); Magnesium 1.8 mg/dL (1.7-2.3); NT Pro B Type Natriuretic Pept 11 pg/mL (0-125); Osmolality Calculated 282 mOsm/kg (285-295); Potassium 3.6 mmol/L (3.5-5.1); Sodium 135 mmol/L (136-145); Total Bilirubin 0.3 mg/dL (0.15-1.2); Total Protein 8.1 g/dL (6.6-8.7)
--- NOTE | 2020-07-30 21:38 | ECG_ITS ---
[facility] Test Date: 2020-07-30 Pat Name: Martita Dixon Department: Room: Gender: Female Exhibits Manager: : 1975 Requested By: Janey Pereira Order Number: [id number] Ramos MD: Dilma Allen M.D. Measurements Intervals [place] Rate: 111 P: 28 [place]: 158 QRS: -32 QRSD: 102 T: 3 QT: 343 QTc: 468 Interpretive Statements SINUS TACHYCARDIA MARKED LEFT AXIS DEVIATION [QRS AXIS < -30] POSSIBLE ANTERIOR MYOCARDIAL INFARCTION [30 ms Q WAVE IN V3/V4, OR R < 0.2 mV IN V4], PROBABLY OLD Compared to ECG 07/30/2020 20:12:09 Myocardial infarct finding now present Sinus rhythm no longer present Electronically Signed On 07-31-2020 19:23:35 THERMODYNAMICS ENGINEER by Dilma Allen M.D. [id number] f
[2020-07-30 23:14] LABS: Troponin 5 2HR Delta 0 ABS# (0-10)
[2020-07-30] MEDS: predniSONE 20 mg Tablet 60 MG PO (23:55)
[2020-07-30] MEDS: levoFLOXacin 750 mg Tablet PO (23:55)
[2020-07-31 00:02] VITALS: PULSE 83; RESP 18; O2SAT 94
[2020-07-31 00:17] VITALS: BP 158/75; PULSE 78; RESP 16; O2SAT 93
[2020-07-31 01:06] LABS: HCG, Serum Qual Negative (Negative)
== END 2020-07-31 00:19 | disposition home or self-care (01) ==
PROVIDERS: Emergency Provider Emergency Medicine; PCP Family Medicine
DX: J18.9 Pneumonia, unspecified organism (principal); Z79.51 Long term (current) use of inhaled steroids; J45.909 Unspecified asthma, uncomplicated
CPT/HCPCS: 12345; 36415; 71045; 71275; 80053; 83735; 83880; 84484; 84703; 85025; 85378; 85610; 85730; 87040; 93005; 94640; 96372; 96374; 96375; 99283; 99284; J2930; J7512; Q9967

== ENCOUNTER 2020-08-15 09:34 | Outpatient (CLI) | payer BC, SELFPAY ==
[2020-08-17 11:58] LABS: Cat Dander (E1) Ige <0.10 kU/L; Cat Dander Class 0; Common Ragweed (Short) (W1) Ig <0.10 kU/L; Dog Dander (E5) Ige <0.10 kU/L; Dog Dander Class 0; Elm (T8) Ige <0.10 kU/L; Elm Class 0; English Plantain (W9) Ige <0.10 kU/L; English Plantain Class 0; Immunoglobulin E 4 kU/L (<OR=114); Immunoglobulin E 5 kU/L (<OR=114); Lamb'S Quarters (Goose Foot) <0.10 kU/L; Lamb'S Quarters Class 0; Maple (Box Elder) (T1) Ige <0.10 kU/L; Maple Class 0; Oak (T7) Ige <0.10 kU/L; Oak Class 0; Ragweeed Class 0; Rough Marsh Elder (W16) Ige <0.10 kU/L; Rough Marsh Elder Class 0
[2020-08-20 14:32] LABS: Alternaria Alternata (M6) Ige <0.10 kU/L; Alternaria Class 0; Bermuda Class 0; Bermuda Grass (G2) Ige <0.10 kU/L; D. Farinae Class 0; Dermatophagoides Class 0; Dermatophagoides Farinae (D2) <0.10 kU/L; Dermatophagoides Pteronyssinus <0.10 kU/L; House Dust (Greer) (H1) Ige <0.10 kU/L; House Dust (Hollister- Stier) <0.10 kU/L; House Dust Class 0; Johnson Grass (G10) Ige <0.10 kU/L; Johnson Grass Cl 0; June Grass Class 0; June Grass(Kentucky Blue) (G8) <0.10 kU/L; Meadow Fescue (G4) Ige <0.10 kU/L; Meadow Fescue Class 0; Mucor Racemosus Class 0; Orchard Grass (Cocksfoot) (G3) <0.10 kU/L; Penicillium Class 0; Penicillium Notatum (M1) Ige <0.10 kU/L; Perennial Rye Grass (G5) Ige <0.10 kU/L; Perennial Rye Grass Class 0; Sweet Vernal Class 0; Sweet Vernal Grass (G1) Ige <0.10 kU/L; Timothy Grass (G6) Ige <0.10 kU/L; Timothy Grass Class 0
== END 2020-08-15 09:35 | disposition home or self-care (01) ==
LOC: CDL 09:38
PROVIDERS: PCP Family Medicine; Visit Provider Internal Medicine Pulmonary Disease
DX: R06.02 Shortness of breath (principal); J45.909 Unspecified asthma, uncomplicated; B44.81 Allergic bronchopulmonary aspergillosis
CPT/HCPCS: 82785; 86003

== ENCOUNTER 2020-09-26 13:56 | Outpatient (CLI) | payer BC, SELFPAY ==
--- NOTE | 2020-09-26 14:00 | CT_ITS ---
WS: [id number] CT CHEST TECHNIQUE: Noncontrast CT of the chest with coronal and sagittal reformatted images. CLINICAL INFORMATION: resolution of pneumonia COMPARISON: CTA chest July 30, 2020 DLP: 950.[address] scans at [facility] use at least one of these dose optimization techniques: automat ed exposure control; mA and/or kV adjustment per patient size (includes targeted exams where dose is matched to clinical indication); or iterative reconstruction. FINDINGS: Previously described left upper lobe pneumonia has resolved. No significant residual infiltrate. No c onsolidation or pleural fluid. A few new small hazy opacities in right lower lobe. Additional small m icronodular infiltrates in the right upper lobe. Findings are likely infectious or inflammatory. This is new from previous. No mediastinal or hilar lymphadenopathy. No axillary lymphadenopathy. Bilatera l breast implants. Cholecystectomy clips. Adrenal glands are normal. Small splenule. CT/CT chest wo con [id number] IMPRESSION: 1. Previously described left upper lobe pneumonia has resolved. 2. A few tiny opacities in right lower lobe with a few peripheral micronodular infiltrates in the right upper lobe. This is likely infectious or inflammatory . No focal consolidation. 3. No mediastinal or hilar lymphadenopathy. 4. Prior cholecystectomy.
== END 2020-09-26 13:57 | disposition home or self-care (01) ==
LOC: RADWPI 14:02
PROVIDERS: PCP Family Medicine; Visit Provider Internal Medicine Pulmonary Disease
DX: R06.02 Shortness of breath (principal); Z90.49 Acquired absence of other specified parts of digestive tract
CPT/HCPCS: 71250

== ENCOUNTER 2021-03-22 10:20 | Outpatient (CLI) | payer BC, SELFPAY ==
[2021-03-22 10:54] LABS: Alanine Aminotransferase 22 U/L (0-33); Albumin Level 4.2 g/dL (3.5-5.2); Alkaline Phosphatase 79 IU/L (35-105); Aspartate Amino Transferase 25 U/L (0-32); Creatine Phosphokinase 70 U/L (26-192); Globulin 2.9 g/dL (1.3-4.6); Total Bilirubin 0.3 mg/dL (0.15-1.2); Total Protein 7.1 g/dL (6.6-8.7)
== END 2021-03-22 10:21 | disposition home or self-care (01) ==
PROVIDERS: PCP Family Medicine; Visit Provider Internal Medicine Pulmonary Disease
DX: E78.5 Hyperlipidemia, unspecified (principal); Z79.899 Other long term (current) drug therapy
CPT/HCPCS: 36415; 80076; 82550

== ENCOUNTER 2021-12-12 08:33 | Outpatient (CLI) | payer OTHER, SELFPAY ==
[2021-12-12 09:40] LABS: Alanine Aminotransferase 25 U/L (0-33); Albumin Level 4.3 g/dL (3.5-5.2); Alkaline Phosphatase 101 IU/L (35-105); Aspartate Amino Transferase 30 U/L (0-32); Chol HDL Ratio 3.47 mg/dL (0.0-4.40); Cholesterol 198 mg/dL (0-200); Creatine Phosphokinase 66 U/L (26-192); Globulin 3.6 g/dL (1.3-4.6); HDL Cholesterol 57 mg/dL (60-100); LDL Cholesterol Calculated 123 mg/dL (50-129); LDL HDL Ratio 2.16 RATIO (0.00-3.22); Total Bilirubin 0.5 mg/dL (0.15-1.2); Total Protein 7.9 g/dL (6.6-8.7); Triglycerides 89 mg/dL (0-150)
[2021-12-13 13:57] LABS: Aldolase 8.6 U/L (< OR = 8.1)
== END 2021-12-12 08:34 | disposition home or self-care (01) ==
LOC: LAB 08:35
PROVIDERS: PCP Family Medicine; Visit Provider Internal Medicine Pulmonary Disease
DX: E78.5 Hyperlipidemia, unspecified (principal); Z79.899 Other long term (current) drug therapy
CPT/HCPCS: 80061; 80076; 82085; 82550

== ENCOUNTER 2022-06-01 13:26 | Emergency (ER) | payer OTHER, SELFPAY ==
[2022-06-01 13:46] VITALS: BP 153/96; PULSE 97; RESP 20; TEMP 36.6; O2SAT 95; BMI 33.6
--- NOTE | 2022-06-01 13:49 | XRR_ITS ---
PROCEDURE INFORMATION: Exam: XR Chest Exam date and time: 06/01/2022 2:13 PM Age: 46 years old Clinical indication: Shortness of breath; Prior surgery; Surgery date: 6+ months; Surgery type: Breast implants; Additional info: SOB TECHNIQUE: Imaging protocol: Radiologic exam of the chest. Views: 2 views. COMPARISON: CT chest con [id number] 09/26/2020 2:13 PM FINDINGS: Lungs: Unremarkable. No consolidation. Pleural spaces: Unremarkable. No pleural effusion. No pneumothorax. Heart/Mediastinum: Unremarkable. No cardiomegaly. Bones/joints: Unremarkable. XR/XR chest 2V* [id number] IMPRESSION: No acute findings.
--- NOTE | 2022-06-01 13:49 | ECG_ITS ---
[facility] Test Date: 2022-06-01 Pat Name: Martita Dixon Department: Room: Gender: Female Crisis Clinician: : 1975 Requested By: Kong Montaño Order Number: [id number] Ramos MD: Willie Hairston M.D. Measurements Intervals [place] Rate: 84 P: 20 [place]: 156 QRS: -26 QRSD: 98 T: 6 QT: 382 QTc: 453 Interpretive Statements SINUS RHYTHM BORDERLINE LEFT AXIS DEVIATION [QRS AXIS < -20] Compared to ECG 07/30/2020 23:29:35 Sinus tachycardia no longer present Myocardial infarct finding no longer present Electronically Signed On 06-01-2022 18:28:14 CDT by Willie Hairston M.D. [email or web address].[facility]wood[facility] centerShanghai Mym[employer] Technologyfirelands [facility].[employer]/store/OM/[id number]
--- NOTE | 2022-06-01 13:54 | ED_ITS ---
HPI - SOB/Dyspnea General: Chief Complaint: Shortness of Breath/Dyspnea Stated Complaint: SOB Time Seen by Provider: 06/01/22 13:43 History of Present Illness: HPI Narrative: 46-year-old female presents with shortness of breath. Patient has a history of asthma. She reports that about 2 weeks ago they went to [place]. At that time she made multiple trips up above 9000 feet elevation but came down out of it daily. Patient reports that at that time she was needing to use her inhaler frequently with underlying history of asthma. That every since then she is been needing her inhaler more frequently. That she utilized and anti-inflammatory diet and it seemed to help. Patient reports that this weekend they went to their [place] and she forgot her inhaler and her symptoms worsened. She presents today because she is having increasing shortness of breath and feeling of wheezing. No reports of fever, chills, nausea, vomiting or other systemic complaints. Associated symptoms: Deny abdominal pain, chest congestion, chest pain, dizziness, fever(s), nausea, palpitations or vomiting Review of Systems Const: Denies: fever(s) or chills Card: Denies: chest pain or palpitations Resp: Reports: dyspnea, non-productive cough and wheezing; Denies: chest congestion GI: Denies: abdominal pain, nausea, vomiting or diarrhea : Denies: flank pain or difficulty voiding Musc: Reports: back pain; Denies: neck pain Skin/Breast: Denies: rash Neuro: Denies: headache(s), numbness in extremities or dizziness All/Imm: Denies: urticaria or throat swelling PFS ED PFSH: Social History Smoking and tobacco status: never smoked Second hand smoke exposure: No Smoking risk assessment/counseling performed?: No Alcohol intake: never Lives independently: Yes Household members: spouse Housing: House Marital status: Current occupational status: employed Current occupation: [employer] Pets and animals: No History of recent travel: No Current gender identity: Female Physical Exam Const: COMMON NORMALS: no acute distress, patient oriented x3 and alert HENMT: COMMON NORMALS: hearing grossly normal bilaterally and moist oral mucous membranes Neck/C-Spine: COMMON NORMALS: full ROM, no lymphadenopathy and no JVD Resp: COMMON NORMALS: normal respiratory effort and No use of accessory muscles EFFORT & INSPECTION: Yes able to speak in complete sentences and Yes other (Mild decreased lung sounds) Cardio: COMMON NORMALS: no JVD, regular rate and regular rhythm RATE: regular rate RHYTHM: regular rhythm GI: COMMON NORMALS: Soft to palpation and non-tender INSPECTION: Yes normal to inspection PALPATION: Yes Soft to palpation Extremity: COMMON NORMALS: normal to inspection, full ROM and capillary refill normal Neuro: COMMON NORMALS: patient oriented x3, CN's II-XII intact bilaterally, moves all extremities and no focal motor deficits SENSORIUM/ORIENTATION: Yes alert Psych: COMMON NORMALS: mental status grossly normal, Normal thought process present, cooperative, normal affect and speech normal SPEECH: Yes normal speech THOUGHT PROCESS: Normal thought process present Skin: COMMON NORMALS: no rashes or lesions noted and no wounds GENERAL SKIN EXAM: no rashes or lesions noted Course Vital Signs: Vital signs: Vital Signs Temperature 97.8 F 06/01/22 13:57 Pulse Rate 98 06/01/22 16:28 Respiratory Rate 22 H 06/01/22 14:00 Blood Pressure 153/96 06/01/22 13:57 Pulse Oximetry 96 06/01/22 14:00 Oxygen Delivery Me thod 06/01/22 14:00 MDM - SOB/Dyspnea Medical Decision Making Patient is feeling significant better following treatment. There was no significant findings on chest x-ray or labs. I will start her on steroid for a couple days. Recommend she use her albuterol every 4 hours for the next 24 hours then as needed. She should call her equipment tester next week to see if he wants to see her on outpatient basis. Patient's potassium is slightly low so I will start her on 20 mEq potassium x5 days. Patient stable and discharged home Lab Data : 06/01/22 15:08 06/01/22 15:08 Labs/Radiology: Radiology Impressions Chest X-Ray 06/01/22 13:49 IMPRESSION: No acute findings. Laboratory Results WBC 7.2 10^3/uL (4.0-10.0) 06/01/22 15:08 RBC 5.37 10^6/uL (4.1-5.3) H 06/01/22 15:08 Hgb 15.1 g/dL (11.5-15.3) 06/01/22 15:08 Hct 43.8 % (37.0-47.0) 06/01/22 15:08 MCV 81.6 fl (81-99) 06/01/22 15:08 MCH 28.1 pg (28.0-34.0) 06/01/22 15:08 MCHC 34.5 g/dL (30.0-36.0) 06/01/22 15:08 RDW 12.1 % (12.1-15.1) 06/01/22 15:08 Plt Count 260 10^3/cmm (130-400) 06/01/22 15:08 MPV 11.4 fL (7.4-10.4) H 06/01/22 15:08 Neut % (Auto) 59.4 % 06/01/22 15:08 Lymph % (Auto) 28.5 % 06/01/22 15:08 [place] % (Auto) 9.0 % 06/01/22 15:08 Eos % (Auto) 2.4 % 06/01/22 15:08 Baso % (Auto) 0.4 % 06/01/22 15:08 Neut # (Auto) 4.27 10^3/uL (1.8-7.7) 06/01/22 15:08 Lymph # (Auto) 2.1 10^3/uL (0.8-4.8) 06/01/22 15:08 [place] # (Auto) 0.7 10^3/uL (0.2-0.9) 06/01/22 15:08 Eos # (Auto) 0.2 10^3/uL (0.0-0.8) 06/01/22 15:08 Baso # (Auto) 0.0 10^3/uL (0.0-0.1) 06/01/22 15:08 Nucleated RBC % (auto) 0 % 06/01/22 15:08 Nucleated RBCs # 0.0 /100WBC 06/01/22 15:08 Sodium 138 mmol/L (136-145) 06/01/22 15:08 Potassium 2.9 mmol/L (3.5-5.1) L 06/01/22 15:08 Chloride 98 mmol/L (98-107) 06/01/22 15:08 Carbon Dioxide 25 mmol/L (22-29) 06/01/22 15:08 Anion Gap 17.9 (5-19) 06/01/22 15:08 BUN 14 mg/dL (6-20) 06/01/22 15:08 Creatinine 0.5 mg/dL (0.5-0.9) 06/01/22 15:08 GFR Calculation 132.2 mL/min (90-130) H 06/01/22 15:08 Glucose 91 mg/dL (65-115) 06/01/22 15:08 Calculated Osmolality 286 mOsm/kg (285-295) 06/01/22 15:08 Calcium 9.7 mg/dL (8.5-10.5) 06/01/22 15:08 Magnesium 1.8 mg/dL (1.7-2.3) 06/01/22 15:08 Total Bilirubin 0.5 mg/dL (0.15-1.2) 06/01/22 15:08 AST 36 U/L (0-32) H 06/01/22 15:08 ALT 38 U/L (0-33) H 06/01/22 15:08 Alkaline Phosphatase 114 U/L (35-105) H 06/01/22 15:08 NT-Pro-B Natriuret Pep 10 pg/mL (0-125) 06/01/22 15:08 Total Protein 7.9 g/dL (6.6-8.7) 06/01/22 15:08 Albumin 4.3 g/dL (3.5-5.2) 06/01/22 15:08 Globulin 3.6 g/dL (1.3-4.6) 06/01/22 15:08 EKG Data EKG 1: I personally reviewed and interpreted this EKG as follows: EKG Interpretation Date: 06/01/22 EKG interpretation time: 14:34 Interpretation: Heart rate 84, normal sinus rhythm, no acute ST elevation or T wave changes. AL 156, QTc 423 Discharge Plan Discharge Patient Disposition: Home Clinical Impression: High altitude dyspnea, Exacerbation of reactive airway disease Condition: Stable Prescriptions: New prednisone 20 mg tablet 60 mg PO DAILY 3 Days Qty: 9 0RF potassium chloride 20 mEq tablet extended release 20 meq PO DAILY Qty: 7 0RF No Action hydrochlorothiazide 25 mg tablet 50 mg PO DAILY albuterol sulfate [Ventolin HFA] 90 mcg/actuation HFA aerosol inhaler 1 inh inhalation QID PRN (Reason: shortness of breath or wheezing) Qty: 8.5 5RF Flovent HFA 110 mcg/actuation HFA aerosol inhaler 1 inh INHALATION Q12H Qty: 12 3RF Rx Instructions: administer with spacer ipratropium-albuterol 0.5 mg-3 mg(2.5 mg base)/3 mL solution for nebulization 3 ml inhalation Q4H PRN (Reason: wheezing) Qty: 180 3RF montelukast [Singulair] 10 mg tablet 10 mg PO DAILY Qty: 30 3RF metoprolol tartrate 25 mg tablet 25 mg PO DAILY Qty: 30 3RF aspirin 81 mg tablet,delayed release (DR/EC) 81 mg PO DAILY Qty: 30 3RF atorvastatin 40 mg tablet 40 mg PO DAILY Qty: 30 3RF Ad&K 1 tab PO DAILY Dsm 1 tab PO DAILY Discharge Orders: Discharge ED (Routine); Ordered 06/01/22 Ordered By: Kong Montaño Referrals: Pritesh La MD [Primary Care Provider] - Discharge Diet: Usual diet Discharge Activity: Increase activity as tolerated Patient Instructions: Opioid Safety Activity Restrictions/Additional Instructions: Recommend use your albuterol inhaler every 4 hours for the next 24 hours while you are awake. Please call your equipment tester Thursday or Thursday to make them aware of your symptoms to see if he wants to see you on outpatient basis. Return to the ER as needed Coding Level of Care Code ED Movie Projectionist for Christiano Angulo Exam Comprehensive
[2022-06-01 13:57] VITALS: BP 153/96; PULSE 97; RESP 20; TEMP 36.6; O2SAT 95
[2022-06-01] MEDS: ipratropium-albuterol 3 mL Neb INHALATION (13:57)
[2022-06-01 14:00] VITALS: PULSE 95; RESP 22; O2SAT 96
[2022-06-01 14:09] VITALS: PULSE 98
--- NOTE | 2022-06-01 15:04 | PC.NURSE ---
Pt taking shallow breaths, lung sounds are clear with equal chest rise.
[2022-06-01] MEDS: dexamethasone 10 mg/mL INJ IVP (15:10)
[2022-06-01 15:22] LABS: Basophils % 0.4 %; Eosinophils # 0.2 10^3/uL (0.0-0.8); Eosinophils % 2.4 %; Hematocrit 43.8 % (37.0-47.0); Hemoglobin 15.1 g/dL (11.5-15.3); Lymphocytes # 2.1 10^3/uL (0.8-4.8); Lymphocytes % 28.5 %; Mean Corpuscular HGB Conc 34.5 g/dL (30.0-36.0); Mean Corpuscular Hemoglobin 28.1 pg (28.0-34.0); Mean Corpuscular Volume 81.6 fl (81-99); Mean Platelet Volume 11.4 fL (7.4-10.4); Monocytes # 0.7 10^3/uL (0.2-0.9); Neutrophils # 4.27 10^3/uL (1.8-7.7); Neutrophils % 59.4 %; Nucleated Red Blood Cells % 0 %; Platelet Count 260 10^3/cmm (130-400); Red Blood Count 5.37 10^6/uL (4.1-5.3); Red Cell Distribution Width 12.1 % (12.1-15.1); White Blood Count 7.2 10^3/uL (4.0-10.0)
[2022-06-01 16:00] LABS: Alanine Aminotransferase 38 U/L (0-33); Albumin Level 4.3 g/dL (3.5-5.2); Alkaline Phosphatase 114 U/L (35-105); Anion Gap 17.9 (5-19); Aspartate Amino Transferase 36 U/L (0-32); Blood Urea Nitrogen 14 mg/dL (6-20); Calcium 9.7 mg/dL (8.5-10.5); Carbon Dioxide 25 mmol/L (22-29); Chloride 98 mmol/L (98-107); Globulin 3.6 g/dL (1.3-4.6); Glomerular Filtration Rate 132.2 mL/min (90-130); Glucose 91 mg/dL (65-115); Magnesium 1.8 mg/dL (1.7-2.3); NT Pro B Type Natriuretic Pept 10 pg/mL (0-125); Osmolality Calculated 286 mOsm/kg (285-295); Sodium 138 mmol/L (136-145); Total Bilirubin 0.5 mg/dL (0.15-1.2); Total Protein 7.9 g/dL (6.6-8.7)
[2022-06-01 16:18] LABS: Potassium 2.9 mmol/L (3.5-5.1)
[2022-06-01 16:28] VITALS: PULSE 98
== END 2022-06-01 16:29 | disposition home or self-care (01) ==
PROVIDERS: Emergency Provider Student in an Organized Health Care Education/Training Program; PCP Family Medicine
DX: J45.901 Unspecified asthma with (acute) exacerbation (principal); R06.09 Other forms of dyspnea
CPT/HCPCS: 36415; 71046; 80053; 83735; 83880; 85025; 93005; 94640; 96374; 99285; J1100

== ENCOUNTER 2022-06-06 15:56 | Emergency (ER) | payer OTHER, SELFPAY ==
[2022-06-06 16:07] VITALS: BP 133/91; PULSE 80; RESP 16; TEMP 36.9; O2SAT 93
--- NOTE | 2022-06-06 16:07 | ECG_ITS ---
[facility] Test Date: 2022-06-06 Pat Name: Martita Dixon Department: Room: Gender: Female Cut Order Hand: : 1975 Requested By: Lauren Glass Order Number: [id number] Rachel MD: Tarsha Fraser M.D. Measurements Intervals [place] Rate: 78 P: 31 [place]: 149 QRS: -35 QRSD: 94 T: 25 QT: 380 QTc: 435 Interpretive Statements SINUS RHYTHM LEFT AXIS DEVIATION [QRS AXIS < -30] Compared to ECG 06/01/2022 14:01:41 No significant changes Electronically Signed On 06-07-2022 8:35:23 CDT by Tarsha Fraser M.D. [id number]
[2022-06-06 17:30] LABS: Basophils # 0.1 10^3/uL (0.0-0.1); Basophils % 0.5 %; Eosinophils # 0.3 10^3/uL (0.0-0.8); Eosinophils % 2.2 %; Hematocrit 47.4 % (37.0-47.0); Hemoglobin 16.1 g/dL (11.5-15.3); Lymphocytes # 3.1 10^3/uL (0.8-4.8); Mean Corpuscular Hemoglobin 28.4 pg (28.0-34.0); Mean Corpuscular Volume 83.7 fl (81-99); Mean Platelet Volume 11.7 fL (7.4-10.4); Monocytes # 0.9 10^3/uL (0.2-0.9); Monocytes % 7.9 %; Neutrophils # 7.17 10^3/uL (1.8-7.7); Neutrophils % 61.8 %; Nucleated Red Blood Cells % 0 %; Platelet Count 278 10^3/cmm (130-400); Red Blood Count 5.66 10^6/uL (4.1-5.3); Red Cell Distribution Width 12.5 % (12.1-15.1); White Blood Count 11.6 10^3/uL (4.0-10.0)
[2022-06-06 17:48] LABS: D Dimer 0.37 ug/mIFEU (0-0.59)
[2022-06-06 17:51] LABS: Troponin(5th) Baseline 6 ng/L (0-10)
[2022-06-06 17:57] LABS: Alanine Aminotransferase 34 U/L (0-33); Albumin Level 4.8 g/dL (3.5-5.2); Alkaline Phosphatase 92 U/L (35-105); Anion Gap 14.6 (5-19); Aspartate Amino Transferase 26 U/L (0-32); Blood Urea Nitrogen 14 mg/dL (6-20); Calcium 10.4 mg/dL (8.5-10.5); Carbon Dioxide 31 mmol/L (22-29); Chloride 96 mmol/L (98-107); Globulin 3.2 g/dL (1.3-4.6); Glomerular Filtration Rate 107.2 mL/min (90-130); Glucose 90 mg/dL (65-115); NT Pro B Type Natriuretic Pept 61 pg/mL (0-125); Osmolality Calculated 286 mOsm/kg (285-295); Potassium 3.6 mmol/L (3.5-5.1); Sodium 138 mmol/L (136-145); Total Bilirubin 0.4 mg/dL (0.15-1.2)
--- NOTE | 2022-06-06 19:36 | ECG_ITS ---
[facility] Test Date: 2022-06-06 Pat Name: Martita Dixon Department: Room: Gender: Female Manufacturing Applications Engineer: : 1975 Requested By: Lauren Glass Order Number: [id number] Rachel MD: Tarsha Fraser M.D. Measurements Intervals [place] Rate: 81 P: 37 [place]: 143 QRS: -30 QRSD: 97 T: 12 QT: 367 QTc: 426 Interpretive Statements SINUS RHYTHM BORDERLINE LEFT AXIS DEVIATION [QRS AXIS < -20] Compared to ECG 06/06/2022 16:07:03 No significant changes Electronically Signed On 06-07-2022 8:38:05 CDT by Tarsha Fraser M.D. [id number]
[2022-06-06 20:10] LABS: Troponin 5 2HR Delta 0 ABS# (0-10)
--- NOTE | 2022-06-06 20:42 | ED_ITS ---
HPI - SOB/Dyspnea General: Chief Complaint: Shortness of Breath/Dyspnea Stated Complaint: sent by blaise del valle bloodflorentin Time Seen by Provider: 06/06/22 20:42 History of Present Illness: HPI Narrative: Ms. Dixon is a 46-year-old lady with history of somewhat unspecified lung abnormality in 2019 who presents to the emergency department due to shortness of breath. She reports being treated in 2019 and essentially not having any issues until a number of weeks ago after travel. [place] and immediately had shortness of breath. She did have mild improvement with albuterol but essentially since that time has had continued symptoms. She was treated with steroids which transiently improved symptoms however they have subsequently recurred. Additionally she had a course of antibiotics and continued scheduled nebulized treatments without significant success. Intensity symptoms is moderate to severe and worse with exertion. She now has developed right lower side/chest pain that is worse with deep inspiration. She contacted PCP who referred her to the emergency department for further evaluation. No other specific changes in health, exacerbating, or alleviating factors identified. Onset (ago): week(s) Timing: progressively worsening Severity: severe Exacerbating factors: exertion, coughing and inspiration Known history of: other Associated symptoms: Reports no associated symptoms Review of Systems General: Reports: 10 or more systems reviewed and unremarkable except in HPI and below PFSH ED PFSH: Medical History ABPA (allergic bronchopulmonary aspergillosis) History of pericarditis Hx of primary hypertension Surgical History Hx of cholecystectomy Hx of hysterectomy Social History Smoking and tobacco status: never smoked Second hand smoke exposure: No Smoking risk assessment/counseling performed?: No Alcohol intake: never Lives independently: Yes Household members: spouse Housing: House Marital status: Current occupational status: employed Current occupation: [employer] Pets and animals: No History of recent travel: No Current gender identity: Female Physical Exam Const: COMMON NORMALS: alert GENERAL APPEARANCE: cooperative and well developed HENMT: COMMON NORMALS: normocephalic and atraumatic HEAD & SCALP: normocephalic and atraumatic THROAT: posterior oropharynx normal Eye: COMMON NORMALS: conjunctivae normal CONJUNCTIVA: Yes conjunctivae normal SCLERA: sclerae normal Neck/C-Spine: COMMON NORMALS: supple GENERAL: Yes trachea midline Resp: COMMON NORMALS: normal respiratory effort and clear to auscultation bilaterally EFFORT & INSPECTION: Yes able to speak in complete sentences AUSCULTATION: clear to auscultation bilaterally Cardio: COMMON NORMALS: regular rate and regular rhythm RATE: regular rate RHYTHM: regular rhythm GI: COMMON NORMALS: Soft to palpation PALPATION: Yes Soft to palpation and No Tenderness to palpation present (GI) Extremity: GENERAL: Yes normal exam except as noted and No edema Neuro: COMMON NORMALS: moves all extremities SENSORIUM/ORIENTATION: Yes alert and No Orientation impaired Psych: COMMON NORMALS: mental status grossly normal and Normal thought process present THOUGHT PROCESS: Normal thought process present Course ED course: - Patient was seen and evaluated by me at bedside - Patient placed on cardiac monitors, IV access obtained - Initial evaluation notable for exam as above - Labs personally interpreted by me. EKG notable for sinus rhythm with left axis deviation, nonspecific ST segment abnormalities. No STEMI. - Labs notable for mild leukocytosis and hemoconcentration. Metabolic panel with mild evidence of dehydration. Transaminitis again noted though improving and only minimal. Delta troponin is negative. D-dimer negative. - I had extensive discussion with the patient regarding her symptoms and the negative predictive value of normal D-dimer. On the other hand the patient now is pleuritic chest pain and does describe intermittent episodes of hypoxemia as based on tracker with SPO2 monitoring with dips as low as high 80s at times. She is not currently requiring oxygen. I did discuss the risk of radiation exposure and the uncertainty, patient is primarily concerned about PE and wishes to proceed with imaging. - Imaging notable for no evidence of PE, patient does have evidence of pneumonitis/infection - Upon serial reexamination after treatment the patient was similar - Based on patient history, evaluation, and testing as interpreted the most likely cause of the patient's condition is somewhat unclear with shortness of breath and chest pain. - The results of ED evaluation were discussed with the patient including possible disposition options. The patient seems to have failed outpatient therapy though is not requiring supplemental oxygen at ultimately patient feels comfortable with discharge with plan for longer steroid taper, continued albuterol treatments, and a stronger antibiotic which did provide improvement from her past episode. Additionally in review of pulmonology notes and based on my assessment of patient's presentation and history I do feel that additional etiologies need to be explored such as cardiac etiology of shortness of breath and chest pain. The patient is also comfortable having this in the outpatient setting as we do not perform stress test over the weekend and symptoms are certainly not typical of cardiac chest pain. -I will plan to message case management for outpatient cardiology work-up in addition to pulmonology follow-up. - I discussed prescriptions and/or symptomatic cares (if applicable) including appropriate and responsible use, followup plan, and return precautions. The karla ent verbalized understanding and felt safe for discharge. - Patient discharged in satisfactory condition. Note: Click bubbles or prepopulated griffin in note writing are used for assistance with data collection and billing and are inherently more limited than narrative and other text portions of this note. Please use narrative for additional clinical history and defer to narrative/free test for any case of contradictory information. If information appears in only free text or click bubble it should be considered present or absent as reported. Please contact note bond writer for clarifications of clinical information or contradictory information. MDM is a brief summary, contradictory or erroneous seeming information should be clarified and full note should be reviewed. Vital Signs: Vital signs: Vital Signs Temperature 98.4 F 06/06/22 23:40 Pulse Rate 79 06/06/22 23:40 Respiratory Rate 16 06/06/22 23:40 Blood Pressure 137/73 06/06/22 23:40 Pulse Oximetry 95 06/06/22 23:40 Oxygen Delivery Me thod 06/06/22 16:07 MDM - SOB/Dyspnea Medical Decision Making 46-year-old lady with complex pulmonary history presenting with shortness of breath after traveling with a new component of pleuritic chest pain. Symptoms have persisted despite outpatient treatment. Ultimately no clear etiology of symptoms identified with the exception of pneumonitis/pneumonia persisting. Plan to increase steroid taper and prescribe Levaquin. Outpatient cardiology eval and pulmonology follow-up. Strict return precautions given. Medical Records I reviewed the patient's medical records. Lab Data I reviewed the patient's lab results. : 06/06/22 17:05 06/06/22 17:05 Labs/Radiology: Radiology Impressions Chest CTA 06/06/22 21:05 IMPRESSION: 1. Negative for pulmonary embolus. 2. Coronary artery atherosclerotic calcifications. 3. Spleen enlarged to 14 cm. 4. Mild cardiomegaly. 5. Minimal patchy bilateral ground-glass airspace opacities may reflect an infectious or inflammatory process. 6. Cholecystectomy. Laboratory Results WBC 11.6 10^3/uL (4.0-10.0) H 06/06/22 17:05 RBC 5.66 10^6/uL (4.1-5.3) H 06/06/22 17:05 Hgb 16.1 g/dL (11.5-15.3) H 06/06/22 17:05 Hct 47.4 % (37.0-47.0) H 06/06/22 17:05 MCV 83.7 fl (81-99) 06/06/22 17:05 MCH 28.4 pg (28.0-34.0) 06/06/22 17:05 MCHC 34.0 g/dL (30.0-36.0) 06/06/22 17:05 RDW 12.5 % (12.1-15.1) 06/06/22 17:05 Plt Count 278 10^3/cmm (130-400) 06/06/22 17:05 MPV 11.7 fL (7.4-10.4) H 06/06/22 17:05 Neut % (Auto) 61.8 % 06/06/22 17:05 Lymph % (Auto) 27.0 % 06/06/22 17:05 [place] % (Auto) 7.9 % 06/06/22 17:05 Eos % (Auto) 2.2 % 06/06/22 17:05 Baso % (Auto) 0.5 % 06/06/22 17:05 Neut # (Auto) 7.17 10^3/uL (1.8-7.7) 06/06/22 17:05 Lymph # (Auto) 3.1 10^3/uL (0.8-4.8) 06/06/22 17:05 [place] # (Auto) 0.9 10^3/uL (0.2-0.9) 06/06/22 17:05 Eos # (Auto) 0.3 10^3/uL (0.0-0.8) 06/06/22 17:05 Baso # (Auto) 0.1 10^3/uL (0.0-0.1) 06/06/22 17:05 Nucleated RBC % (auto) 0 % 06/06/22 17:05 Nucleated RBCs # 0.0 /100WBC 06/06/22 17:05 D-Dimer 0.37 ug/mIFEU (0-0.59) 06/06/22 17:05 Sodium 138 mmol/L (136-145) 06/06/22 17:05 Potassium 3.6 mmol/L (3.5-5.1) 06/06/22 17:05 Chloride 96 mmol/L (98-107) L 06/06/22 17:05 Carbon Dioxide 31 mmol/L (22-29) H 06/06/22 17:05 Anion Gap 14.6 (5-19) 06/06/22 17:05 BUN 14 mg/dL (6-20) 06/06/22 17:05 Creatinine 0.6 mg/dL (0.5-0.9) 06/06/22 17:05 GFR Calculation 107.2 mL/min (90-130) 06/06/22 17:05 Glucose 90 mg/dL (65-115) 06/06/22 17:05 Calculated Osmolality 286 mOsm/kg (285-295) 06/06/22 17:05 Calcium 10.4 mg/dL (8.5-10.5) 06/06/22 17:05 Total Bilirubin 0.4 mg/dL (0.15-1.2) 06/06/22 17:05 AST 26 U/L (0-32) 06/06/22 17:05 ALT 34 U/L (0-33) H 06/06/22 17:05 Alkaline Phosphatase 92 U/L (35-105) 06/06/22 17:05 Troponin T Baseline 6 ng/L (0-10) 06/06/22 17:05 Troponin T 120 Minute 6.00 ng/L (0-10) 06/06/22 19:10 Delta Troponin T 0 ABS# (0-10) 06/06/22 19:10 NT-Pro-B Natriuret Pep 61 pg/mL (0-125) 06/06/22 17:05 Total Protein 8.0 g/dL (6.6-8.7) 06/06/22 17:05 Albumin 4.8 g/dL (3.5-5.2) 06/06/22 17:05 Globulin 3.2 g/dL (1.3-4.6) 06/06/22 17:05 Discharge Plan Discharge Patient Disposition: Home Clinical Impression: Shortness of breath, Chest pain, Dehydration Condition: Stable Prescriptions: New prednisone 10 mg tablet See Taper PO DAILY Qty: 84 0RF Taper: predniSONE 60-10 60 mg Daily for 2 Days and 0 Hour 50 mg Daily for 2 Days and 0 Hour 40 mg Daily for 2 Days and 0 Hour 30 mg Daily for 2 Days and 0 Hour 20 mg Daily for 2 Days and 0 Hour 10 mg Daily for 2 Days and 0 Hour Rx Instructions: 60 mg daily for 4 Days; 50 mg for 4; 40 mg for 4; 30 mg for 4; 20 mg for 4; 10 mg for 4 days albuterol sulfate 2.5 mg /3 mL (0.083 %) solution for nebulization 2.5 mg inhalation Q4H Qty: 90 0RF No Action hydrochlorothiazide 25 mg tablet 50 mg PO DAILY albuterol sulfate [Ventolin HFA] 90 mcg/actuation HFA aerosol inhaler 1 inh inhalation QID PRN (Reason: shortness of breath or wheezing) Qty: 8.5 5RF Flovent HFA 110 mcg/actuation HFA aerosol inhaler 1 inh INHALATION Q12H Qty: 12 3RF Rx Instructions: administer with spacer ipratropium-albuterol 0.5 mg-3 mg(2.5 mg base)/3 mL solution for nebulization 3 ml inhalation Q4H PRN (Reason: wheezing) Qty: 180 3RF montelukast [Singulair] 10 mg tablet 10 mg PO DAILY Qty: 30 3RF aspirin 81 mg tablet,delayed release (DR/EC) 81 mg PO DAILY Qty: 30 3RF atorvastatin 40 mg tablet 40 mg PO DAILY Qty: 30 3RF furosemide [Lasix] 20 mg tablet 20 mg PO DAILY Qty: 20 0RF potassium chloride 10 mEq tablet extended release 10 meq PO DAILY Qty: 20 0RF Ad&K 1 tab PO DAILY Dsm 1 tab PO DAILY potassium chloride 20 mEq tablet extended release 20 meq PO DAILY Qty: 7 0RF Discharge Orders: Discharge ED (Routine); Ordered 06/06/22 Ordered By: Rubin Jarrett Referrals: Pritesh La MD [Primary Care Provider] - Discharge Diet: Usual diet Discharge Activity: Increase activity as tolerated Patient Instructions: COPD (Chronic Obstructive Pulmonary Disease) (ED), Community Acquired Pneumonia (ED) Activity Restrictions/Additional Instructions: Thank you for visiting the emergency department. You were seen evaluated for continued respiratory symptoms and chest pain. The exact cause of your symptoms is unclear though after discussion we can plan to continue outpatient management. I will prescribe a longer steroid taper in addition to a stronger antibiotic. Additionally please continue to use your albuterol nebulized treatments. I will message case management for follow-up with pulmonology as well as outpati ent cardiac evaluation. Return to the emergency department for worsening symptoms or anything else that you are concerned about and feel needs emergency department evaluation. Coding Level of Care Code ED Land Mobile Radio Technician for Christiano Angulo Exam Comprehensive
--- NOTE | 2022-06-06 21:05 | CTR_ITS ---
PROCEDURE INFORMATION: Exam: CTA Chest With Contrast Exam date and time: 06/06/2022 9:31 PM Age: 46 years old Clinical indication: Shortness of breath; On breathing; Prior surgery; Surgery type: Breast aug. Gb. Patient HX: C/O RT side pleuritic chest pain with SOB. ; Additional info: R side pleuritic cp, SOB, long travel TECHNIQUE: Imaging protocol: Computed tomographic angiography of the chest with contrast. 3D rendering (Not supervised by radiologist): MIP and/or 3D reconstructed images were created by the technologist. Radiation optimization: All CT scans at this facility use at least one of these dose optimization techniques: automated exposure control; mA and/or kV adjustment per patient size (includes targeted exams where dose is matched to clinical indication); or iterative reconstruction. Contrast material: OMNI 350; Contrast volume: 95 ml; Contrast route: INTRAVENOUS (IV); COMPARISON: CT angio chest PE protcl [id number] 07/30/2020 8:58 PM RADIATION DOSE METRICS: Total DLP (mGy-cm): 440.33 FINDINGS: Pulmonary arteries: Normal. No pulmonary emboli. Aorta: Unremarkable. No aortic aneurysm. No aortic dissection. Lungs: Minimal patchy bilateral ground-glass airspace opacities may reflect an infectious or inflammatory process. Pleural spaces: Unremarkable. No pneumothorax. No pleural effusion. Heart: Coronary artery atherosclerotic calcifications. Mild cardiomegaly. Lymph nodes: Unremarkable. No enlarged lymph nodes. Gallbladder and bile ducts: Cholecystectomy. Spleen: Spleen enlarged to 14 cm. Bones/joints: Unremarkable. No acute fracture. Soft tissues: Unremarkable. CT/CT angio chest PE protcl [id number] IMPRESSION: 1. Negative for pulmonary embolus. 2. Coronary artery atherosclerotic calcifications. 3. Spleen enlarged to 14 cm. 4. Mild cardiomegaly. 5. Minimal patchy bilateral ground-glass airspace opacities may reflect an infectious or inflammatory process. 6. Cholecystectomy.
[2022-06-06] MEDS: iohexol 350 mg/mL 100 mL Btl IV (21:37)
[2022-06-06 23:40] VITALS: BP 137/73; PULSE 79; RESP 16; TEMP 36.9; O2SAT 95
--- NOTE | 2022-06-09 11:34 | DCPLANNER ---
Addendum entered by Enriqueta Moran 06/13/22 09:01: Patient had an appointment with pulmonology - patient did attend appointment. Addendum entered by Enriqueta Moran 06/10/22 14:06: Patient has a follow up appointment scheduled for , June 12, 2022 at 8:[address] Sal at Pulmonology. Clinic will call patient with appointment information. Original Note: appraisal manager had message to schedule a follow up appointment for patient with pulmonology. appraisal manager sent patients information to the front office staff at [facility]. Patients information will be printed and reviewed. Clinic will call patient with appointment information.
--- NOTE | 2022-06-10 11:44 | DCPLANNER ---
Addendum entered by Enriqueta Moran 09/11/22 10:15: stress test was cancelled Addendum entered by Enriqueta Moran 08/18/22 09:05: Patient had an outpatient stress test scheduled for 07.22.22 - patient did attend stress test Patient has an outpatient echo scheduled for August 222021 at 12:45. Centralized scheduling will call patient with appointment information. Original Note: sales engineering manager had message to schedule an outpatient stress test, and echocardiogram for patient. sales engineering manager faxed signed order to centralized scheduling, who will call patient with appointment information.
== END 2022-06-06 23:42 | disposition home or self-care (01) ==
PROVIDERS: Emergency Medicine; Emergency Provider Emergency Medicine; PCP Family Medicine
DX: R06.02 Shortness of breath (principal); R07.9 Chest pain, unspecified; E86.0 Dehydration
CPT/HCPCS: 36415; 71275; 80053; 83880; 84484; 85025; 85378; 93005; 99285; Q9967

== ENCOUNTER 2022-07-01 08:08 | Outpatient (CLI) | payer OTHER, SELFPAY ==
--- NOTE | 2022-07-01 07:30 | CT_ITS ---
WS: [id number] CT CHEST CT-HIGH RESOLUTION, NONCONTRAST. HISTORY: Interstitial lung disease. Technique: High-resolution chest CT is performed in inspiration, expiration, supine and prone positio inga. All CT scans at [facility] use at least one of these dose optimization techniques: automated exposure control; mA and/or kV adjustment per patient size (includes targeted exams where dose is mat ched to clinical indication); or iterative reconstruction. DLP: 2696.98 mGy.cm COMPARISON: 06/06/2022 Findings: Lungs are well aerated. No focal residual nodules or opacifications. No groundglass attenua tion. There is no bronchiectasis or honeycombing. No air trapping or mosaic attenuation. On the expir atory images there is symmetric decrease in lung volume. Bilateral breast implants. There are a few scattered coronary artery calcifications. Heart is normal size. No pericardial or pleural effusions. Prior cholecystectomy. No adrenal mass. CT/CT chest wo con [id number] Impression: 1. Normal chest CT. 2. No residual groundglass attenuation or micronodules. No air trapping, honey combing or bronchiectasis.
--- NOTE | 2022-07-01 14:00 | PFTS_ITS ---
Date of Study:07/02/22 Date of Dictation: MECHANICS: Forced vital capacity (FVC) is normal. Forced expiratory volume in one second (FEV1) is normal. FEV1/FVC is normal. FLOW VOLUME LOOP: Normal. LUNG VOLUMES: Total lung capacity (TLC) is normal. Residual volume (RV) is reduced. DIFFUSING CAPACITY FOR CARBON MONOXIDE: Normal. INTERPRETATION: The prebronchodilator spirometry is normal. No postbronchodilator spirometry was performed. The total lung capacity is normal. There is nonspecific reduction in residual volume. Gas exchange (DLCO) is normal. MTDD
--- NOTE | 2022-07-01 14:32 | PFTS_ITS ---
Date of Study:07/01/22 Date of Dictation: MECHANICS: Forced vital capacity (FVC) is . Forced expiratory volume in one second (FEV1) is . FEV1/FVC is . FLOW VOLUME LOOP: . LUNG VOLUMES: Total lung capacity (TLC) is . Residual volume (RV) is . DIFFUSING CAPACITY FOR CARBON MONOXIDE: . INTERPRETATION: The pulmonary function tests are . mechanics and lung volumes. Gas exchange (DLCO) is . MTDD
== END 2022-07-01 08:09 | disposition home or self-care (01) ==
PROVIDERS: PCP Family Medicine; Visit Provider Internal Medicine Pulmonary Disease
DX: J84.9 Interstitial pulmonary disease, unspecified (principal)
CPT/HCPCS: 36415; 71250; 80048; 83735; 94060; 94618; 94726; 94729

== ENCOUNTER 2022-07-22 06:49 | Outpatient (CLI) | payer OTHER, SELFPAY ==
--- NOTE | 2022-07-22 06:57 | NMCV_ITS ---
NM princess perf SPECT r/s* [id number] Martita Dixon Age: 46 Gender: F : 1975 Exam Date: 07/22/2022 08:01 Ordering Phys: Kyle Watkins MD Technologist: SHAILA Escobedo Exam Location: [facility] Indications: USP DRUG THERAPY STRESS TEST Please see separate stress test report in [facility] for full findings IMAGE PROTOCOL Rest/Stress 1 Lexiscan Day Radiopharmaceutical Dose (mCi) Administration Site Administered by Rest: Tc-99m 10.9 IV SHAILA Pickett Sestamibi Stress:Tc-99m 32.9 IV SHAIAL Pickett Sestamibi Rest: 22-Jul-2022 60 Discovery 630 Stress: 22-Jul-2022 30 Discovery 630 0.4mg Lexiscan. Images obtained in supine and prone position. SPECT RESULTS Technical Quality: Excellent Raw Data Analysis: Normal Image Corrections: No attenuation or motion correction applied Summed Stress Score: 1 Summed Rest Score: 0 Summed Difference Score: 1 PERFUSION FINDINGS Small size perfusion abnormality of mild severity of mid inferolateral wall on supine stress images with improved tracer uptake on prone stress images. This is suggestive of attenuation artifact. FUNCTIONAL RESULTS (calculated via Gated SPECT) Stress Image LV EF (%): 82 Stress EDV (mL):78 TID: 1.17 Stress ESV (mL):14 FUNCTIONAL FINDINGS: The left ventricle is normal in size. Transient Ischemia Dilatation of 1.17. The left ventricular ejection fraction is normal with a value of 82%. There is hyperdynamic left ventricular wall thickening. Normal end-diastolic end-systolic volumes. IMPRESSIONS 1. Myocardial perfusion imaging is normal. Attenuation artifact in mid inferolateral wall. 2. Overall left ventricular systolic function is normal without regional wall motion abnormalities, LVEF=82%. 3. EKG portion of the study will be reported separately. Tarsha Fraser MD (Electronically Signed) Final Date: 24 July 2022 13:03 S
--- NOTE | 2022-07-22 06:57 | ECG_ITS ---
[facility] Test Date: 2022-07-22 Pat Name: Martita Dixon Department: Room: Gender: Female Yarn Handler: : 1975 Requested By: Kyle [employer] Order Number: [id number] Rachel MD: Tarsha Fraser M.D. Interpretive Statements NAME OF STUDY: LEXISCAN SESTAMIBI STRESS TEST INDICATION: Chest Pain; Dyspnea PROCEDURE: At the baseline, the blood pressure was 115/93 mmHg with a heart rate of 65 bpm. The electrocardiogram showed normal sinus rhythm, normal axis with normal ST and T's. The Lexiscan was infused over a period of 20 seconds. A total of 0.4 milligrams of Lexiscan was infused. The stress phase was continued for a total of 5 minutes. Heart rate at the end of the stress phase was 79 beats per min with a blood pressure of 123/91 mmHg. The EKG at the peak infusion revealed sinus rhythm with no significant ST-T wave changes. The study was terminated due to protocol completion. Sestamibi was injected 20 seconds after the Lexiscan infusion. Blood pressure at the end of the recovery phase was 127/90 mmHg with a heart rate of 79 beats per minute. CONCLUSION: 1. No significant EKG changes with the LexiScan infusion. 2. No LexiScan induced chest pain or cardiac arrhythmia. 3. Normal blood pressure and heart rate response. 4. Sestamibi/sestamibi perfusion scan pending; see separate report. Electronically Signed On 07-22-2022 13:38:54 CDT by Tarsha Fraser M.D. [email or web address]
[2022-07-22 07:10] VITALS: BMI 34.2
[2022-07-22] MEDS: regadenoson 0.4 Mg/5 ml Syringe IVP (08:36)
[2022-07-22 08:56] VITALS: BP 127/90; PULSE 78
== END 2022-07-22 06:50 | disposition home or self-care (01) ==
PROVIDERS: PCP Family Medicine; Visit Provider Internal Medicine Pulmonary Disease
DX: E78.5 Hyperlipidemia, unspecified (principal); Z79.899 Other long term (current) drug therapy
CPT/HCPCS: 78452; 93017; A9500; J2785

== ENCOUNTER 2022-08-06 09:31 | Outpatient (CLI) | payer OTHER, SELFPAY ==
[2022-08-06 10:10] LABS: Blood Urea Nitrogen 16 mg/dL (6-20); Calcium 9.9 mg/dL (8.5-10.5); Carbon Dioxide 30 mmol/L (22-29); Chloride 98 mmol/L (98-107); Chol HDL Ratio 3.42 mg/dL (0.0-4.40); Cholesterol 212 mg/dL (0-200); Glomerular Filtration Rate 107.2 mL/min (90-130); Glucose 108 mg/dL (65-115); HDL Cholesterol 62 mg/dL (60-100); LDL Cholesterol Calculated 132 mg/dL (50-129); LDL HDL Ratio 2.13 RATIO (0.00-3.22); Magnesium 1.8 mg/dL (1.7-2.3); Osmolality Calculated 294 mOsm/kg (285-295); Sodium 141 mmol/L (136-145); Triglycerides 92 mg/dL (0-150)
== END 2022-08-06 09:32 | disposition home or self-care (01) ==
LOC: LAB 09:34
PROVIDERS: PCP Family Medicine; Visit Provider Internal Medicine Pulmonary Disease
DX: Z79.899 Other long term (current) drug therapy (principal); T50.2X5A Adverse effect of carbonic-anhydrase inhibitors, benzothiadiazides and other diuretics, initial encounter; E78.5 Hyperlipidemia, unspecified
CPT/HCPCS: 36415; 80048; 80061; 83735

== ENCOUNTER 2022-08-22 12:39 | Outpatient (CLI) | payer OTHER, SELFPAY ==
--- NOTE | 2022-08-22 12:46 | USCV_ITS ---
Martita Dixon Age: 46 Gender: F : 1975 Exam Date: 08/22/2022 13:22 Ordering Phys: Raleigh Cortez DO Technologist: Jacek Grant Exam Location[place] [facility] [place] Indication: shor of breath BP: 120 / 72 HR: 74 Rhythm: Sinus Technical Quality: Adequate MEASUREMENTS (Male / Female) Normal Values 2D ECHO LV Diastolic Diameter PLAX 3.7 cm 4.2 - 5.9 / 3.9 - 5.3 cm LV Systolic Diameter PLAX 2.6 cm IVS Diastolic Thickness 1.0 cm 0.6 - 1.0 / 0.6 - 0.9 cm IVS Systolic Thickness 1.3 cm LVPW Diastolic Thickness 1.0 cm 0.6 - 1.0 / 0.6 - 0.9 cm LVPW Systolic Thickness 1.1 cm LVOT Diameter 2.1 cm LV Ejection Fraction 2D Teich 47.7 % LV Ejection Fraction MOD 2C 67.9 % LV Ejection Fraction 2C AL 68.5 % LA Diameter 3.5 cm Aorta at Sinotubular Diameter 2.8 cm M-MODE Aortic Annulus Diameter 3.3 cm LA Ao Ratio MM 1.2 MV E Point Septal Separation 1.0 cm DOPPLER AV Peak Velocity 99.0 cm/s LVOT Peak Velocity 106.0 cm/s AV Area Cont Eq vti 3.9 cm squared AV Area Cont Eq pk 3.7 cm squared MV Area PHT 5.0 cm squared Mitral E to A Ratio 0.8 MV E' Velocity 74.3 cm/s Mitral E to LV E' Septal Ratio 6.1 TR Peak Velocity 111.7 cm/s TR Peak Gradient 5.0 mmHg TV Peak E Velocity 85.0 cm/s Right Atrial Pressure 3.0 mmHg Pulmonary Artery Systolic Pressu 8.0 mmHg RV Acceleration Time 0.1 s FINDINGS Left Ventricle Left ventricle is normal in size. LV systolic function is normal with EF of 50 to 55%. No regional wall motion abnormalities are seen. Grade 1 diastolic dysfunction Right Ventricle Normal in size and function Right Atrium Normal in size Left Atrium Normal in size Mitral Valve Structurally normal mitral valve. Aortic Valve Grossly normal. No significant stenosis or regurgitation. Tricuspid Valve Trace tricuspid regurgitation. Insufficient TR jet to calculate RVSP Pulmonic Valve Not well-visualized Pericardium Normal Aorta Normal in size IVC Not well visualized CONCLUSIONS LV systolic function is normal with EF of 50 to 55%. Grade 1 diastolic dysfunction No significant valvular heart disease is seen. No comparison studies are available Willie Hairston MD (Electronically Signed) Final Date: 23 August 2022 10:49 S
== END 2022-08-22 12:40 | disposition home or self-care (01) ==
LOC: RAD 12:39
PROVIDERS: PCP Family Medicine; Visit Provider Family Medicine
DX: R07.9 Chest pain, unspecified (principal); R06.02 Shortness of breath
CPT/HCPCS: 93306

== ENCOUNTER 2023-06-10 16:01 | Outpatient (CLI) | payer OTHER, SELFPAY ==
--- NOTE | 2023-06-10 16:10 | XR_ITS ---
WS: [id number] XR chest 2V* [id number] REASON FOR EXAM: rule out pneumonia FINDINGS: Mild tortuosity of the thoracic aorta. Normal heart size. No mediastinal or hilar mass. Calcified granulomatous disease in both hemithoraces. Compared to a previous examination of 06/01/2022, there are irregular linear lung opacities in the lef t lower lung. No pleural abnormality. Mild to moderate degenerative spondylosis in the mid and lower thoracic spine. IMPRESSION: Left lower lung opacities of unknown chronicity. The findings have more the appearance of scarring or atelectasis however the findings could represent either an early pneumonitis or a pneumonitis that i s resolving.
== END 2023-06-10 16:02 | disposition home or self-care (01) ==
PROVIDERS: PCP Family Medicine; Visit Provider Internal Medicine Pulmonary Disease
DX: J18.9 Pneumonia, unspecified organism (principal)
CPT/HCPCS: 71046

== ENCOUNTER → 2025-08-14 14:05 | Outpatient (BNVA) | payer BC, SELFPAY | PROVIDERS: PCP Family Medicine; Visit Provider Family Medicine | DX: Z00.00 Encounter for general adult medical examination without abnormal findings (principal) | CPT/HCPCS: 80053; 84439; 84443; 84481; 85025 ==